=== PATIENT | female | born 1965 | race Caucasian/White ===

== ENCOUNTER 2017-05-31 13:00 | Outpatient (RCR) | payer OTHER ==
[2014-05-21 16:33] VITALS: Ht 175.3 cm; Wt 113.1 kg
[2017-05-28 09:49] LABS: PLATELET COUNT, AUTOMATED 199 K/uL (150-450)
[~2017-05-31] VITALS: Ht 175.3 cm; Wt 113.1 kg
[~2017-05-31 13:00] MED LIST: ACET500T68 PO; ALB18R INH; ALBU8.5H12 IH; AMOX-362 PO; AMOX-559 PO; ASPI81TA94 PO; Bisacodyl PR; CALC-18 PO; CHOL10005 PO; DOCU-416 PO; DOCU240C67 PO; DOXY-181 PO; ENOX100D5 SQ; FLUT16SP20 NS; FLUT1DIS27 IH; FLUT9.9S INH; GABA-549 PO; IBUP600T22 PO; Ibuprofen PO; LEVO-3 PO; LOR1 PO; LORA-629 PO; MAGN100T PO; MET60GMPT TOP; METR60GE; NOR10 PO; OLO2ODPT OD; ONDA4TAB97 PO; ONDA8TAB91 PO; OXYC-854 PO; PER PO; PREG50CA48 PO; PROC10TA4 PO; PYRI100T57 PO; WARF-1 PO
[2017-05-31 13:12] VITALS: BP 128/89
--- NOTE | 2017-06-01 19:01 | ONCOLOGY FOLLOW UP NOTE ---
EVENT DATE: May 31, 2017 DIAGNOSES 1. Stage IC ovarian serous adenocarcinoma. 2. Hypothyroidism. 3. Rosacea. 4. Asthma. CHIEF COMPLAINT The patient is here today for followup of her ovarian carcinoma. ONCOLOGY HISTORY Eda Luis is a 50-year-old woman, premenopausal at presentation, pelvic pain, thought to be uterine myoma. DIAGNOSTIC EVALUATION Pelvic ultrasound April 2014 showed posterior uterine myoma with an otherwise fairly normal uterus. PROCEDURES 1. Diagnostic laparoscopy with total abdominal hysterectomy and bilateral salpingo-oophorectomy with diagnostic cystoscopy done on May 20, 2014, and the pathology came back positive for serous adenocarcinoma, high grade, involving the left ovary. The tumor appears to involve the ovarian surface. The left fallopian tube is cystically dilated and otherwise unremarkable. There was also surface adenocarcinoma high grade involving the right ovary and right fallopian tube. No definitive involvement of the ovarian surface is recognized. There was also benign leiomyoma. 2. DaVinci robotic laparoscopic bilateral pelvic lymph node dissection, including left external iliac, left internal iliac, left obturator lymph node dissection, right external iliac, right internal iliac, right obturator lymph node dissection, multiple peritoneal biopsies, partial omentectomy with appendectomy and diagnostic laparoscopy with lysis of adhesions done by Dr. Brandon Baker on June 11, 2014. PATHOLOGY The debulking surgery was negative regarding the lymph node of the omentum and the staging procedure. STAGE Stage IC (pT1c pN0 cM0). TREATMENT The patient has been evaluated by Dr. Brandon Baker with recommendation of six cycles of carboplatin and Taxol after her surgery. The patient had started chemotherapy with carboplatin and Taxol on July 21, 2014. The patient completed six cycles of adjuvant chemotherapy with carboplatin and Taxol on November 02, 2014. HISTORY OF PRESENT ILLNESS Patient is here today for followup of her ovarian carcinoma. She is doing fine currently. She continues to have hot flashes. She has nasal discharge. She has occasional constipation. She has occasional abdominal pain with bloating sometimes. She has generalized joint pains. She continues to have tingling and numbness in the hands and feet, but they are stable currently from chemotherapy-induced neuropathy. She bruises easily. PAST MEDICAL HISTORY 1. Hypothyroidism. 2. Ovarian cancer. 3. Asthma. 4. Rosacea. 5. Headaches. PAST SURGICAL HISTORY 1. Total abdominal hysterectomy. 2. Bilateral salpingo-oophorectomy May 20, 2014. 3. Debulking surgery for ovarian cancer done on June 11, 2014. 4. TMJ surgery. 5. Surgery for fractured left ankle. 6. [place] tooth extraction. 7. Laparoscopic cholecystectomy done on March 02, 2016. SOCIAL HISTORY The patient is single. She does not have children. 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 Denies any abuse of tobacco, alcohol or drugs. FAMILY HISTORY Father had prostate cancer at the age of 72. There is no family history of ovarian or breast cancer in the family. CURRENT MEDICATIONS 1. Levothyroxine 100 mcg daily. 2. Doxycycline 100 mg daily. 3. Metronidazole 1% topical daily. 4. Fluticasone propionate 50 mcg daily. 5. Albuterol inhaler 90 mcg as needed. 6. Ibuprofen 600 mg as needed. 7. Zofran 4 mg p.r.n. for nausea and vomiting. 8. Percocet 5/325 mg p.r.n. for pain. ALLERGIES ZITHROMAX which causes flare-up of rosacea and MUCINEX D, which causes numbness of her face. REVIEW OF SYSTEMS CONSTITUTIONAL: The patient has hot flashes. HEENT: Ears: No tinnitus or hearing problem. Nose: She has nasal discharge. Throat: No sore throat or mouth ulcers. Eyes: No diplopia or visual changes. RESPIRATORY: No shortness of breath. No cough, expectoration or hemoptysis. CARDIOVASCULAR: No chest pain, orthopnea, or paroxysmal nocturnal dyspnea (PND) . No edema. No palpitations. GASTROINTESTINAL: She has constipation. She has abdominal pain occasionally with bloating. GENITOURINARY: No hematuria or dysuria. MUSCULOSKELETAL: She has generalized joint pain. NEUROLOGICAL: She has tingling and numbness in the hands and feet, which is stable. HEMATOLOGIC/LYMPHATIC: She bruises easily. SKIN: No skin rash or lumps. PSYCHIATRIC: No anxiety or depression. PHYSICAL EXAMINATION GENERAL: Looks stable. Well-developed, well-nourished, and in no acute distress. VITAL SIGNS: Blood pressure 128/89, pulse 79 per minute, respirations 16 per minute, temperature 97, pulse ox 95% on room air. HEENT: Head: Atraumatic. No sinus tenderness to palpation. Eyes: No icterus or conjunctivitis. Mouth and throat: No oral thrush or mucositis. NECK: Supple. No cervical or supraclavicular lymphadenopathy. LUNGS: Clear to auscultation and percussion bilaterally. HEART: Regular rate and rhythm. No gallops, murmurs, clicks or rubs. ABDOMEN: Soft and lax. Scar from recent abdominal surgeries are noted and healed well. EXTREMITIES: No cyanosis, clubbing or edema. LYMPHATICS: No peripheral lymphadenopathy. NEUROLOGICAL: Conscious, alert and oriented times three. No focal motor or sensory deficits. PSYCHIATRIC: Mood and affect appear normal. SKIN: No skin rash, bruise or purpuric eruption. DIAGNOSTIC DATA CBC showed white count 5.1, hemoglobin 16.1, hematocrit 47, platelets 199,000. Chem panel totally normal except carbon dioxide 21. CA-125 is normal at 15. ASSESSMENT 1. Stage Ic (PN0 CM0 ovarian adenocarcinoma involving both ovaries. Left ovarian cancer is present on the surface of the ovary while there is no surface involvement on the right ovarian cancer. The patient had total abdominal hysterectomy and bilateral salpingo-oophorectomy with incidental finding of ovarian cancer done on May 20, 2014, and debulking surgery by Dr. Brandon Baker was done in [place] June 16, 2014. CA-125 prior to treatment was 25. The patient received six courses of adjuvant chemotherapy with carboplatin and Taxol between July 21, 2014 through November 06, 2014. Current CA-125 is normal at 15 and is also stable. Patient currently in complete remission. I am planning to continue followup. As the patient is three years since her diagnosis, I am planning to see her in four months with CBC, chem panel and CA- 125. 2. 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 Patient currently on Lyrica 150 mg twice daily, with stabilization of her neuropathy. We will continue to monitor. 3. Osteoarthritis. PLAN 1. Continue followup. 2. Patient to return in four months with CBC, chem panel, CA-125. 3. Patient to contact us for any new concern or complaints. MTDD
== END 2017-06-29 16:22 | disposition home or self-care (01) ==
LOC: ONC 13:00
PROVIDERS: ATTEND Internal Medicine Hematology
DX: C56.2 Malignant neoplasm of left ovary (principal); G62.0 Drug-induced polyneuropathy; T45.1X5A Adverse effect of antineoplastic and immunosuppressive drugs, initial encounter; M19.90 Unspecified osteoarthritis, unspecified site; Z79.899 Other long term (current) drug therapy; E03.9 Hypothyroidism, unspecified; L71.9 Rosacea, unspecified
CPT/HCPCS: 36415; 82040; 82247; 82310; 82374; 82435; 82565; 82947; 84075; 84132; 84155; 84295; 84450; 84460; 84520; 85025; 86304; 99212

== ENCOUNTER 2017-10-04 13:25 | Outpatient (RCR) | payer OTHER ==
[2014-05-21 16:33] VITALS: Wt 111.8 kg
[2017-10-01 08:14] VITALS: BP 125/87
[2017-10-01 08:34] LABS: PLATELET COUNT, AUTOMATED 211 K/uL (150-450)
[~2017-10-04 13:25] MED LIST changes: +CETI10CA8 PO; +MONT10TA PO
[2017-10-04 13:32] VITALS: BP 112/79
[2017-10-04] MEDS ORDERED: PREG100C44 PO (13:38)
--- NOTE | 2017-10-04 18:53 | ONCOLOGY FOLLOW UP NOTE ---
EVENT DATE: October 04, 2017 DIAGNOSES 1. Stage IC ovarian serous adenocarcinoma. 2. Hypothyroidism. 3. Rosacea. 4. Asthma. CHIEF COMPLAINT The patient is here today for followup of her ovarian carcinoma. ONCOLOGY HISTORY Eda Luis is a 52-year-old woman, premenopausal at presentation, pelvic pain, thought to be uterine myoma. DIAGNOSTIC EVALUATION Pelvic ultrasound April 2014 showed posterior uterine myoma with an otherwise fairly normal uterus. PROCEDURES 1. Diagnostic laparoscopy with total abdominal hysterectomy and bilateral salpingo-oophorectomy with diagnostic cystoscopy done on May 20, 2014, and the pathology came back positive for serous adenocarcinoma, high grade, involving the left ovary. The tumor appears to involve the ovarian surface. The left fallopian tube is cystically dilated and otherwise unremarkable. There was also surface adenocarcinoma high grade involving the right ovary and right fallopian tube. No definitive involvement of the ovarian surface is recognized. There was also benign leiomyoma. 2. DaVinci robotic laparoscopic bilateral pelvic lymph node dissection, including left external iliac, left internal iliac, left obturator lymph node dissection, right external iliac, right internal iliac, right obturator lymph node dissection, multiple peritoneal biopsies, partial omentectomy with appendectomy and diagnostic laparoscopy with lysis of adhesions done by Dr. Brandon Baker on June 11, 2014. PATHOLOGY The debulking surgery was negative regarding the lymph node of the omentum and the staging procedure. STAGE Stage IC (pT1c pN0 cM0). TREATMENT The patient has been evaluated by Dr. Brandon Baker with recommendation of six cycles of carboplatin and Taxol after her surgery. The patient had started chemotherapy with carboplatin and Taxol on July 21, 2014. The patient completed six cycles of adjuvant chemotherapy with carboplatin and Taxol on November 02, 2014. HISTORY OF PRESENT ILLNESS Patient is here today for followup of her ovarian carcinoma. She is doing fine currently. She is complaining of occasional nausea. She has pain in her legs. Her neuropathy from her previous chemotherapy is stable involving both hands and feet. She has occasional headache. She bruises easily. PAST MEDICAL HISTORY 1. Hypothyroidism. 2. Ovarian cancer. 3. Asthma. 4. Rosacea. 5. Headaches. PAST SURGICAL HISTORY 1. Total abdominal hysterectomy. 2. Bilateral salpingo-oophorectomy May 20, 2014. 3. Debulking surgery for ovarian cancer done on June 11, 2014. 4. TMJ surgery. 5. Surgery for fractured left ankle. 6. [place] tooth extraction. 7. Laparoscopic cholecystectomy done on March 02, 2016. SOCIAL HISTORY The patient is single. She does not have children. 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 Denies any abuse of tobacco, alcohol or drugs. FAMILY HISTORY Father had prostate cancer at the age of 72. There is no family history of ovarian or breast cancer in the family. CURRENT MEDICATIONS 1. Levothyroxine 100 mcg daily. 2. Doxycycline 100 mg daily. 3. Metronidazole 1% topical daily. 4. Fluticasone propionate 50 mcg daily. 5. Albuterol inhaler 90 mcg as needed. 6. Ibuprofen 600 mg as needed. 7. Zofran 4 mg p.r.n. for nausea and vomiting. 8. Percocet 5/325 mg p.r.n. for pain. ALLERGIES ZITHROMAX which causes flare-up of rosacea and MUCINEX D, which causes numbness of her face. REVIEW OF SYSTEMS CONSTITUTIONAL: No fever, chills or sweating. No recent infection. HEENT: Ears: No tinnitus or hearing problem. Nose: She has nasal discharge. Throat: No sore throat or mouth ulcers. Eyes: No diplopia or visual changes. RESPIRATORY: No shortness of breath. No cough, expectoration or hemoptysis. CARDIOVASCULAR: No chest pain, orthopnea, or paroxysmal nocturnal dyspnea (PND) . No edema. No palpitations. GASTROINTESTINAL: She has nausea. GENITOURINARY: No hematuria or dysuria. MUSCULOSKELETAL: She has pain in the legs. NEUROLOGICAL: She has tingling and numbness in the hands and feet. She has also occasional headache. HEMATOLOGIC/LYMPHATIC: She bruises easily. SKIN: No skin rash or lumps. PSYCHIATRIC: No anxiety or depression. PHYSICAL EXAMINATION GENERAL: Looks stable. Well-developed, well-nourished, and in no acute distress. VITAL SIGNS: Blood pressure 112/79, pulse 75 per minute, respirations 16 per minute, temperature 97, pulse ox 90% on room air. HEENT: Head: Atraumatic. No sinus tenderness to palpation. Eyes: No icterus or conjunctivitis. Mouth and throat: No oral thrush or mucositis. NECK: Supple. No cervical or supraclavicular lymphadenopathy. LUNGS: Clear to auscultation and percussion bilaterally. HEART: Regular rate and rhythm. No gallops, murmurs, clicks or rubs. ABDOMEN: Soft and lax. Scar from recent abdominal surgeries are noted and healed well. EXTREMITIES: No cyanosis, clubbing or edema. LYMPHATICS: No peripheral lymphadenopathy. NEUROLOGICAL: Conscious, alert and oriented times three. No focal motor or sensory deficits. PSYCHIATRIC: Mood and affect appear normal. SKIN: No skin rash, bruise or purpuric eruption. DIAGNOSTIC DATA CBC showed white count 4.9, hemoglobin 14.7, hematocrit 43.1, platelets 211, 000. Chem panel totally normal except blood sugar 113. CA-125 is normal at 13. ASSESSMENT 1. Stage Ic (pT1c pN0 CM0) ovarian adenocarcinoma involving both ovaries. Left ovarian cancer is present on the surface of the ovary, while there is no surface involvement on the right ovarian cancer. The patient had total abdominal hysterectomy and bilateral salpingo-oophorectomy with incidental finding of ovarian cancer and the procedure was done on May 20, 2014, and debulking surgery done by Dr. Brandon Baker was done in [place] June 16, 2014. CA- 125 prior to treatment was 25. The patient received six courses of adjuvant chemotherapy with carboplatin and Taxol between July 21, 2014 through November 06, 2014. Her current CA-125 is normal at 13 which is stable. She is currently in remission. I am planning to continue followup. I will see her again in four months with CBC, chem panel and CA-125. 2. 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 She is currently on Lyrica and her neuropathy is stable. We will continue to monitor. 3. Osteoarthritis. PLAN 1. Continue followup. 2. Patient to return in four months with CBC, chem panel, CA-125. 3. Patient to contact us for any new concern or complaints. MTDD
[2017-12-14] MEDS ORDERED: FLU60VIA41 IM (14:21)
== END 2017-12-27 ==
LOC: ONC 13:25
PROVIDERS: ATTEND Internal Medicine Hematology
DX: C56.2 Malignant neoplasm of left ovary (principal); G62.9 Polyneuropathy, unspecified; E03.9 Hypothyroidism, unspecified; J45.909 Unspecified asthma, uncomplicated; L71.9 Rosacea, unspecified; R51 Headache; Z90.710 Acquired absence of both cervix and uterus; Z90.49 Acquired absence of other specified parts of digestive tract; Z92.21 Personal history of antineoplastic chemotherapy
CPT/HCPCS: 36415; 82040; 82247; 82310; 82374; 82435; 82565; 82947; 84075; 84132; 84155; 84295; 84450; 84460; 84520; 85025; 86304; 99212

== ENCOUNTER 2018-01-25 13:00 | Outpatient (RCR) | payer OTHER ==
[2014-05-21 16:33] VITALS: Wt 110.4 kg
[2018-01-22 08:13] VITALS: BP 130/77
[2018-01-22 08:32] LABS: PLATELET COUNT, AUTOMATED 184 K/uL (150-450)
[~2018-01-25 13:00] MED LIST changes: +FLU60VIA41 IM; +PREG100C44 PO
[2018-01-25 13:14] VITALS: BP 118/90
--- NOTE | 2018-01-26 18:26 | ONCOLOGY FOLLOW UP NOTE ---
EVENT DATE: January 25, 2018 DIAGNOSES 1. Stage IC ovarian serous adenocarcinoma. 2. Hypothyroidism. 3. Rosacea. 4. Asthma. CHIEF COMPLAINT Patient is here today for followup of her ovarian carcinoma. ONCOLOGY HISTORY Eda Luis is a 52-year-old woman, premenopausal at presentation, pelvic pain, thought to be uterine myoma. DIAGNOSTIC EVALUATION Pelvic ultrasound April 2014 showed posterior uterine myoma with an otherwise fairly normal uterus. PROCEDURES 1. Diagnostic laparoscopy with total abdominal hysterectomy and bilateral salpingo-oophorectomy with diagnostic cystoscopy done on May 20, 2014, and the pathology came back positive for serous adenocarcinoma, high grade, involving the left ovary. The tumor appears to involve the ovarian surface. The left fallopian tube is cystically dilated and otherwise unremarkable. There was also surface adenocarcinoma high grade involving the right ovary and right fallopian tube. No definitive involvement of the ovarian surface is recognized. There was also benign leiomyoma. 2. [place] robotic laparoscopic bilateral pelvic lymph node dissection including left external iliac, left internal iliac, left obturator lymph node dissection, right external iliac, right internal iliac, right obturator lymph node dissection, multiple peritoneal biopsies, partial omentectomy with appendectomy, and diagnostic laparoscopy with lysis of adhesions done by Dr. Brandon Baker on June 11, 2014. PATHOLOGY The debulking surgery was negative regarding the lymph nodes of the omentum and the staging procedure. STAGE Stage IC (pT1c pN0 cM0). TREATMENT The patient has been evaluated by Dr. Brandon Baker with recommendation of six cycles of carboplatin and Taxol after her surgery. The patient had started chemotherapy with carboplatin and Taxol on July 21, 2014. The patient completed six cycles of adjuvant chemotherapy with carboplatin and Taxol on November 02, 2014. HISTORY OF PRESENT ILLNESS Patient is here today for followup of her ovarian carcinoma. She is doing fine currently. She is complaining of pain especially in the legs. She continues to have neuropathy, getting worse in her feet, and the patient is currently on high-dose Lyrica. She bruises easily. PAST MEDICAL HISTORY 1. Hypothyroidism. 2. Ovarian cancer. 3. Asthma. 4. Rosacea. 5. Headaches. PAST SURGICAL HISTORY 1. Total abdominal hysterectomy with bilateral salpingo-oophorectomy May 20, 2014. 2. Debulking surgery for ovarian cancer done on June 11, 2014. 3. TMJ surgery. 4. Surgery for fractured left ankle. 5. [place] tooth extraction. 6. Laparoscopic cholecystectomy done on March 02, 2016. SOCIAL HISTORY The patient is single. She does not have children. 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 Denies any abuse of tobacco, alcohol, or drugs. FAMILY HISTORY Father had prostate cancer at the age of 72. There is no family history of ovarian or breast cancer in the family. CURRENT MEDICATIONS 1. Levothyroxine 100 mcg daily. 2. Doxycycline 100 mg daily. 3. Metronidazole 1% topical daily. 4. Fluticasone propionate 50 mcg daily. 5. Albuterol inhaler 90 mcg as needed. 6. Ibuprofen 600 mg as needed. 7. Zofran 4 mg p.r.n. for nausea and vomiting. 8. Percocet 5/325 mg p.r.n. for pain. ALLERGIES ZITHROMAX which causes flare up of rosacea and MUCINEX D which causes numbness of her face. REVIEW OF SYSTEMS CONSTITUTIONAL: No appetite or weight change. No fever, chills, or sweating. No recent infection. HEENT: Ears: No tinnitus or hearing problem. Nose: No nasal discharge or epistaxis. Throat: No sore throat or mouth ulcers. Eyes: No diplopia or visual changes. RESPIRATORY: No shortness of breath. No cough, expectoration, or hemoptysis. CARDIOVASCULAR: No chest pain, orthopnea, or paroxysmal nocturnal dyspnea (PND). No edema. No palpitations. GASTROINTESTINAL: No nausea or vomiting. No diarrhea or constipation. No change in bowel movements. No heartburn or swallowing difficulties. No abdominal pain. No jaundice. No hematemesis, melena, or rectal bleeding. GENITOURINARY: No hematuria or dysuria. MUSCULOSKELETAL: She has pain in the legs. NEUROLOGIC: She has neuropathy especially in her feet, on Lyrica currently. No headaches or convulsions. HEMATOLOGIC/LYMPHATIC: No bleeding. She bruises easily. No weakness or fatigue. No enlarged lymph nodes. SKIN: No skin rash or lumps. PSYCHIATRIC: No anxiety or depression. PHYSICAL EXAMINATION GENERAL: Looks stable. Well developed, well nourished, and in no acute distress. VITAL SIGNS: Blood pressure 118/90, pulse 63 per minute, respirations 16 per minute, temperature 96.6, pulse ox 94% on room air. HEENT: Head: Atraumatic. No sinus tenderness to palpation. Eyes: No icterus or conjunctivitis. Mouth and Throat: No oral thrush or mucositis. NECK: Supple. No cervical or supraclavicular lymphadenopathy. LUNGS: Clear to auscultation and percussion bilaterally. HEART: Regular rate and rhythm. No gallops, murmurs, clicks, or rubs. ABDOMEN: Soft and lax. No tenderness. No hepatosplenomegaly. No masses. EXTREMITIES: No cyanosis, clubbing, or edema. LYMPHATICS: No peripheral lymphadenopathy. NEUROLOGICAL: Conscious, alert, and oriented times three. No focal motor or sensory deficits. PSYCHIATRIC: Mood and affect appear normal. SKIN: No skin rash, bruise, or purpuric eruption. DIAGNOSTIC DATA CBC showed white count 4.4, hemoglobin 14.4, hematocrit 43.6, platelets 184,000. Chem panel is totally normal. CA-125 is normal at 13. ASSESSMENT 1. Stage IC (pT1c pN0 cM0) ovarian adenocarcinoma involving both ovaries. Left ovarian cancer is present on the surface of the ovary, while there is no surface involvement on the right ovarian cancer. The patient had total abdominal hysterectomy and bilateral salpingo-oophorectomy with incidental finding of ovarian cancer. She had her hysterectomy on the May, and debulking surgery done by Dr. Brandon Baker was done in [place] June 16, 2014. CA- 125 prior to treatment was 25. Patient received six courses of adjuvant chemotherapy with carboplatin and Taxol between July 21, 2014, through November 06, 2014. Her current CEA is normal at 13, which is also stable. She is currently in remission. I am planning to continue followup. I will see her again in four months with CBC, chemistry panel, and CA-125. 2. 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 She is currently on high-dose Lyrica. 3. Osteoarthritis. PLAN 1. Continue followup. 2. Patient to return in four months with CBC, chem panel, CA-125. 3. Patient to contact us for any new concern or complaints. MTDD
== END 2018-02-11 08:58 | disposition home or self-care (01) ==
LOC: ONC 13:00
PROVIDERS: ATTEND Internal Medicine Hematology
DX: C56.2 Malignant neoplasm of left ovary (principal); E03.9 Hypothyroidism, unspecified; J45.909 Unspecified asthma, uncomplicated; G62.0 Drug-induced polyneuropathy; T45.1X5S Adverse effect of antineoplastic and immunosuppressive drugs, sequela
CPT/HCPCS: 36415; 82040; 82247; 82310; 82374; 82435; 82565; 82947; 84075; 84132; 84155; 84295; 84450; 84460; 84520; 85025; 86304; 99212

== ENCOUNTER → 2018-02-25 | Outpatient (CLI) | payer OTHER ==
[2014-05-21 16:33] VITALS: BMI 35.4
--- NOTE | 2018-02-26 12:16 | RADIOLOGY IMAGING REPORT ---
FACILITY: [facility] PATIENT NAME: KEVON LUCERO : [id number] MR: [id number] V: [id number] EXAM DATE: [id number] ORDERING PHYSICIAN: SASHA CAMARGO TECHNOLOGIST: Abigail Moncada PROCEDURE:BILATERAL DIGITAL SCREENING MAMMOGRAM WITH CAD ASSISTED INTERPRETATION & 3D TOMOSYNTHESIS COMPARISON:Prior mammograms 03/02/17, 02/02/16, 02/05/15, 01/26/15, 12/26/13. INDICATIONS:SCREENING FINDINGS: The breasts are heterogeneously dense which may obscure small masses. The parenchymal pattern has remained stable allowing for difference in mammographic technique & patient positioning. There is a biopsy clip in the 12 o'clock position of the Right breast. There is a small well circumscribed nodular density in the posterior 1/3 of the Left breast just above midline on the Left MLO view that appears stable. DIAGNOSTIC CATEGORY 2--BENIGN FINDING. RECOMMENDATIONS: ROUTINE MAMMOGRAM AND CLINICAL EVALUATION. IMPRESSION: BIRADS 2: Benign finding. No significant abnormality is seen. Dictated by: Yue Dunaway M.D. on 02/25/2018 at 17:53 Transcribed by: ADAL on 02/26/2018 at 8:50 Approved by: Yue Dunaway M.D. on 02/26/2018 at 12:15 [facility]
== END ==
LOC: MAMO 02:27
PROVIDERS: ATTEND Obstetrics & Gynecology
DX: Z12.31 Encounter for screening mammogram for malignant neoplasm of breast (principal)
CPT/HCPCS: 77063; 77067

== ENCOUNTER 2018-06-14 10:50 | Emergency (ER) | payer OTHER ==
[2014-05-21 16:33] VITALS: Wt 102.1 kg
[~2018-06-14 10:50] MED LIST changes: +BENZ200C15 PO; +[UNRECOGNIZED DRUG - CODE] PO
--- NOTE | 2018-06-14 11:07 | ER Report ---
History and Physical Time Seen By MD: 11:07 Hx. of Stated Complaint: ABDOMINAL PAIN FOR 2 WEEKS THAT STATES ABOVE THE UMBILICUS AND RADIATES TO LOWER PELVIS. PAIN IS WORSE AFTER SHE EATS. SHE HAS BEEN ON PRILOSEC FOR A FEW DAYS WITHOUT RELEIF. SAW DR. PAPPAS ON SUNDAY FOR CONSTIPATION. STARTED MIRALAX AND STOOL AND SOFTNERS. HAD A SMALL BM THIS MORNING HPI/ROS CHIEF COMPLAINT: Abdominal pain HISTORY OF PRESENT ILLNESS: 52-year-old female patient presents to emergency room with complaint of abdominal pain. Patient states this been going on for the past few weeks. She states the pain seems to her in the upper abdomen and then migrates to the pelvis. Patient states she's not had any diarrhea. Patient states that she has been dealing with some constipation. She is currently taking a stool softener and MiraLAX. Patient states that she has had some nausea and one episode of vomiting. She states she is not taking any other medications besides the stool softener and MiraLAX. She states she started on that earlier this week. Patient is concerned because she does have pain after eating. She states that seems to be the worst time. She states she has had a decreased appetite. REVIEW OF SYSTEMS: Respiratory: No cough, no dyspnea. Cardiovascular: No chest pain, no palpitations. Gastrointestinal: As noted above Musculoskeletal: No back pain. Allergies: Coded Allergies: guaifenesin (Verified Allergy, Intermediate, face went numb, 06/14/18) azithromycin (Verified Adverse Reaction, Intermediate, rosacea flares up really bad, 06/14/18) Uncoded Allergies: band aids (Adverse Reaction, Intermediate, RASH, 05/13/14) Home Meds Active Scripts Amoxicillin/Pot Clav 875-125 Mg Tab (AUGMENTIN 875-125 TABLET) 1 Each Tablet, 1 TAB PO Q12H for 7 Days, #14 TAB 0 Refills Prov:BONITA MORRIS DNP, JEWEL WAXER-BC 02/25/18 Montelukast Sodium (SINGULAIR) 10 Mg Tablet, 1 TAB PO QHS for 30 Days, #30 TAB 6 Refills Prov:SETH LOVE JR, MD 08/29/17 Pyridoxine Hcl (VITAMIN B-6) 100 Mg Tablet, 100 MG PO BID, #60 TAB Prov:MATY WYATT JEWEL WAXER-BC, ONC 07/21/14 Reported Medications Pregabalin (LYRICA) 100 Mg Capsule, 150 MG PO BID, CAPSULE 10/04/17 Cetirizine Hcl (ZYRTEC) 10 Mg Capsule, 10 MG PO QDAY, CAPSULE 08/14/17 Magnesium Amino Acid Chelate (MAGNESIUM) Unknown Strength Tablet, 100 MG PO QDAY 02/25/16 Calcium Carbonate (CALCIUM) 500 Mg Tab.chew, 500 MG PO, TAB.CHEW 02/25/16 Cholecalciferol (Vitamin D3) (VITAMIN D3) 1,000 Unit Tablet, 800 UNIT PO, TAB 02/25/16 Aspirin (ASPIRIN) 81 Mg Tab.chew, 81 MG PO QDAY, TAB.CHEW 02/17/15 Acetaminophen (TYLENOL EXTRA STRENGTH) 500 Mg Tablet, 500 MG PO PRN 12/11/14 Albuterol Sul Hfa 90 Mcg 8 Gm (VENTOLIN HFA 90 MCG 8 GM) 8.5 Gm Hfa.aer.ad, 1-2 PUFF IH 3-4XD 07/10/14 Olopatadine (PATADAY) 0.05 Ml Soln, 2.5 ML OD 07/10/14 Fluticasone Propionate (Flonase Allergy Relief) 9.9 Ml [place].susp, 50 MCG INH 07/10/14 Metronidazole (METRONIDAZOLE) 60 Gm Gel..gram., 60 GM .ROUTE DAILY 07/10/14 Levothyroxine Sodium (LEVOTHYROXINE SODIUM) 100 Mcg Tablet, 125 MCG PO QDAY 05/13/14 Doxycycline Hyclate (DOXYCYCLINE HYCLATE) 100 Mg Capsule, 100 MG PO QDAY, CAPSULE 05/13/14 Discontinued Scripts Codeine Sulfate (CODEINE SULFATE) 15 Mg Tablet, 1-2 TAB PO Q6H PRN for COUGH, #10 TAB 0 Refills Prov:BONITA MORRIS DNP, JEWEL WAXER-BC 05/15/18 Benzonatate (BENZONATATE) 200 Mg Capsule, 1 CAP PO TID PRN for COUGH, #20 CAP 0 Refills Prov:BONITA MORRIS DNP, JEWEL WAXER-BC 05/13/18 Past Medical/Surgical History Patient has a past medical history of hypertension, hyperlipidemia, asthma, pneumonia, constipation, reflux, left ankle fracture, hypothyroidism, rosacea, ovarian cancer, chemotherapy. Patient has surgical history of abdominal surgery, laparoscopy, rule out surgery 2 stage ovarian cancer, cholecystectomy, hysterectomy, repair of the left ankle fracture, TMJ, Mediport removed in 2014. Reviewed Nurses Notes: Yes Hx Smoking: No Smoking Status: Never Smoker Exposure to Second Hand Smoke?: No Hx Alcohol Use: No Constitutional Vital Sign - Last 24 Hours 06/14/18 06/14/18 06/14/18 06/14/18 10:55 11:00 11:15 11:30 Temp 97.8 Pulse 92 68 Resp 18 B/P (MAP) 148/112 148/112 (124) 127/97 (107) 130/88 (102) Pulse Ox 93 90 O2 Delivery Room Air 06/14/18 06/14/18 06/14/18 06/14/18 11:45 12:00 12:15 12:30 Pulse 69 58 B/P (MAP) 128/107 (114) 137/92 (107) 143/85 (104) 149/103 (118) Pulse Ox 92 98 06/14/18 12:30 O2 Flow Rate 2.0 Physical Exam General Appearance: The patient is alert, has no immediate need for airway pro tection and no current signs of toxicity. Respiratory: Chest is non tender, lungs are clear to auscultation. Cardiac: regular rate and rhythm Gastrointestinal: Abdomen is soft and generalized tenderness, no masses, bowel sounds normal. Musculoskeletal: Neck: Neck is supple and non tender. Extremities have full range of motion and are non tender. Skin: No rashes or lesions. DIFFERENTIAL DIAGNOSIS: After history and physical exam differential diagnosis was considered for abdominal pain including but not limited to appendicitis, cholecystitis, gastritis and urinary tract infection. Medical Decision Making Data Points Result Diagram: 06/14/18 1125 06/14/18 1125 Laboratory Hematology Test 06/14/18 10:56 06/14/18 11:25 Urine Color Yellow Urine Clarity Slightly-cloudy Urine pH 6.0 pH (4.8-9.5) Urine Specific [place] 1.014 Urine Protein 30 mg/dL (NEGATIVE) Urine Glucose (UA) Negative mg/dL (NEGATIVE) Urine Ketones Negative mg/dL (NEGATIVE) Urine Blood Negative (NEGATIVE) Urine Nitrite Negative (NEGATIVE) Urine Bilirubin Negative (NEGATIVE) Urine Urobilinogen 2.0 mg/dL (0.2-1.9) Urine Leukocyte Esterase Moderate (NEGATIVE) Urine RBC <1 /HPF (0-2/HPF) Urine WBC 5 /HPF (0-5/HPF) Urine Squamous Epithelial Cells Many /LPF (</=FEW) Urine Transitional Epithelial Cells Many /LPF (NONE-FEW) Urine Amorphous Crystals Few /HPF Urine Bacteria Negative /HPF (NONE-FEW) Urine Mucus None /HPF (NONE-FEW) Red Blood Count 5.50 M/uL (4.17-5.56) Mean Corpuscular Volume 80.7 fL (80.0-96.0) Mean Corpuscular Hemoglobin 26.1 pg (26.0-33.0) Mean Corpuscular Hemoglobin Concent 32.3 g/dL (32.0-36.0) Red Cell Distribution Width 13.6 % (11.5-14.5) Mean Platelet Volume 8.7 fL (7.2-11.1) Neutrophils (%) (Auto) 59.1 % (39.4-72.5) Lymphocytes (%) (Auto) 29.8 % (17.6-49.6) Monocytes (%) (Auto) 8.2 % (4.1-12.4) Eosinophils (%) (Auto) 1.9 % (0.4-6.7) Basophils (%) (Auto) 1.0 % (0.3-1.4) Nucleated RBC Relative Count (auto) 0.1 /100WBC Neutrophils # (Auto) 2.6 K/uL (2.0-7.4) Lymphocytes # (Auto) 1.3 K/uL (1.3-3.6) Monocytes # (Auto) 0.4 K/uL (0.3-1.0) Eosinophils # (Auto) 0.1 K/uL (0.0-0.5) Basophils # (Auto) 0.0 K/uL (0.0-0.1) Nucleated RBC Absolute Count (auto) 0.00 K/uL Sodium Level 137 mmol/L (137-145) Potassium Level 3.9 mmol/L (3.5-5.0) Chloride Level 103 mmol/L (98-107) Carbon Dioxide Level 25 mmol/L (22-31) Blood Urea Nitrogen 14 mg/dl (7-18) Creatinine 0.80 mg/dl (0.52-1.04) Glomerular Filtration Rate Calc > 60.0 Random Glucose 104 mg/dl (75-110) Calcium Level 9.2 mg/dl (8.4-10.2) Total Bilirubin 0.4 mg/dl (0.2-1.3) Aspartate Amino Transf (AST/SGOT) 21 U/L (0-35) Alanine Aminotransferase (ALT/SGPT) 42 U/L (0-56) Alkaline Phosphatase 84 U/L (0-126) C-Reactive Protein 0.7 mg/dl (<1.0) Total Protein 7.2 g/dl (6.3-8.2) Albumin 4.2 g/dl (3.5-5.0) Amylase Level 86 U/L (0-110) Lipase 440 U/L (23-300) Chemistry Test 06/14/18 10:56 06/14/18 11:25 Urine Color Yellow Urine Clarity Slightly-cloudy Urine pH 6.0 pH (4.8-9.5) Urine Specific [place] 1.014 Urine Protein 30 mg/dL (NEGATIVE) Urine Glucose (UA) Negative mg/dL (NEGATIVE) Urine Ketones Negative mg/dL (NEGATIVE) Urine Blood Negative (NEGATIVE) Urine Nitrite Negative (NEGATIVE) Urine Bilirubin Negative (NEGATIVE) Urine Urobilinogen 2.0 mg/dL (0.2-1.9) Urine Leukocyte Esterase Moderate (NEGATIVE) Urine RBC <1 /HPF (0-2/HPF) Urine WBC 5 /HPF (0-5/HPF) Urine Squamous Epithelial Cells Many /LPF (</=FEW) Urine Transitional Epithelial Cells Many /LPF (NONE-FEW) Urine Amorphous Crystals Few /HPF Urine Bacteria Negative /HPF (NONE-FEW) Urine Mucus None /HPF (NONE-FEW) White Blood Count 4.4 k/uL (4.5-11.0) Red Blood Count 5.50 M/uL (4.17-5.56) Hemoglobin 14.4 g/dL (12.0-16.0) Hematocrit 44.4 % (34.0-47.0) Mean Corpuscular Volume 80.7 fL (80.0-96.0) Mean Corpuscular Hemoglobin 26.1 pg (26.0-33.0) Mean Corpuscular Hemoglobin Concent 32.3 g/dL (32.0-36.0) Red Cell Distribution Width 13.6 % (11.5-14.5) Platelet Count 191 K/uL (150-450) Mean Platelet Volume 8.7 fL (7.2-11.1) Neutrophils (%) (Auto) 59.1 % (39.4-72.5) Lymphocytes (%) (Auto) 29.8 % (17.6-49.6) Monocytes (%) (Auto) 8.2 % (4.1-12.4) Eosinophils (%) (Auto) 1.9 % (0.4-6.7) Basophils (%) (Auto) 1.0 % (0.3-1.4) Nucleated RBC Relative Count (auto) 0.1 /100WBC Neutrophils # (Auto) 2.6 K/uL (2.0-7.4) Lymphocytes # (Auto) 1.3 K/uL (1.3-3.6) Monocytes # (Auto) 0.4 K/uL (0.3-1.0) Eosinophils # (Auto) 0.1 K/uL (0.0-0.5) Basophils # (Auto) 0.0 K/uL (0.0-0.1) Nucleated RBC Absolute Count (auto) 0.00 K/uL Glomerular Filtration Rate Calc > 60.0 Calcium Level 9.2 mg/dl (8.4-10.2) Total Bilirubin 0.4 mg/dl (0.2-1.3) Aspartate Amino Transf (AST/SGOT) 21 U/L (0-35) Alanine Aminotransferase (ALT/SGPT) 42 U/L (0-56) Alkaline Phosphatase 84 U/L (0-126) C-Reactive Protein 0.7 mg/dl (<1.0) Total Protein 7.2 g/dl (6.3-8.2) Albumin 4.2 g/dl (3.5-5.0) Amylase Level 86 U/L (0-110) Lipase 440 U/L (23-300) Urinalysis Test 06/14/18 10:56 Urine Color Yellow Urine Clarity Slightly-cloudy Urine pH 6.0 pH (4.8-9.5) Urine Specific [place] 1.014 Urine Protein 30 mg/dL (NEGATIVE) Urine Glucose (UA) Negative mg/dL (NEGATIVE) Urine Ketones Negative mg/dL (NEGATIVE) Urine Blood Negative (NEGATIVE) Urine Nitrite Negative (NEGATIVE) Urine Bilirubin Negative (NEGATIVE) Urine Urobilinogen 2.0 mg/dL (0.2-1.9) Urine Leukocyte Esterase Moderate (NEGATIVE) Urine RBC <1 /HPF (0-2/HPF) Urine WBC 5 /HPF (0-5/HPF) Urine Squamous Epithelial Cells Many /LPF (</=FEW) Urine Transitional Epithelial Cells Many /LPF (NONE-FEW) Urine Amorphous Crystals Few /HPF Urine Bacteria Negative /HPF (NONE-FEW) Urine Mucus None /HPF (NONE-FEW) EKG/Imaging Imaging ADDENDUM #1 ADDENDUM: There is a possible isodense mass at the junction of the body and tail the pancreas measuring 1.3 cm in diameter. Given the abrupt dilatation of the pancreatic duct in the tail the pancreas MRCP should also be performed to evaluate for potential pancreatic mass in this location. Results were called to NISSA PEREA at 06/14/2018 1:50 PM. Report Dictated By: Yue Dunaway MD at 06/14/2018 1:55 PM Report E-Signed By: Yue Dunaway MD at 06/14/2018 1:[address] ABDOMEN PELVIS W/ CON HISTORY: abdominal pain x3 days, elevated lipase TECHNIQUE: Following administration of IV contrast contiguous axial images acquired through the abdomen/pelvis. Coronal and sagittal reformatting also performed.Dose Lowering Technique One of the following dose optimization techniques was utilized in the performance of this exam: Automated exposure control; adjustment of the mA and/or kV according to the patient's size; or use of an iterative reconstruction technique. Specific details can be referenced in the facility's radiology CT exam operational policy. CONTRAST: 75 mL Isovue-370 COMPARISON: CT abdomen pelvis February 02, 2016 and MR the abdomen summary six 2015 FINDINGS: Visualized lung bases: There are dependent changes seen in the lower lung graves Hepatobiliary: There postsurgical changes from a cholecystectomy Spleen: Negative. Adrenals: Right adrenal gland appears unremarkable. A normal-appearing left adrenal gland is not seen. In the expected location of the left adrenal gland is a heterogeneous mass measuring 3.8 x 4.8 x 4 cm. This is in intimate contact with heterogeneous retroperitoneal mass measuring 5.2 x 3.7 x 6 cm which is in the left periaortic region and surrounds the left renal artery with superior draping of the left renal vein there are additional enlarged left para-aortic and aortic caval masses likely representing adenopathy. Enlarged retrocrural lymph nodes are also present. An index node in the right retrocrural region measures 3 x 2 cm. There is also portal caval adenopathy. A conglomerate mass measures 5.6 x 3.2 x 4 cm and extends from just below the caudate lobe to the level of the left renal vein and is in intimate contact with the uncinate p rocess of the pancreas Pancreas: Please see above discussion. Other than the portal caval mass a butting the uncinate process of the pancreas no other pancreatic masses identified. The pancreatic duct is mildly prominent in the tail measuring up to 4 mm. Kidneys ureters or bladder: Tiny subcentimeter hypodensities in the left kidney likely represent cysts although are too small to characterize. Bladder is moderately distended with urine Genitalia: Hysterectomy GI: There is a surgical clip adjacent to the cecum Vessels/spaces/nodes: Please see above discussion under the adrenal Bones/soft tissues: No aggressive appearing bone lesions are seen Additional findings: None pertinent. IMPRESSION: There is an irregular left-sided retroperitoneal mass encasing the left renal artery with additional enlarged retroperitoneal masses suggesting adenopathy. There is also a large heterogeneous mass in the expected location of the left adrenal gland (a normal-appearing adrenal gland is not seen). Extensive retrocrural adenopathy and a large portacaval mass abutting the uncinate process of the pancreas is also identified. Findings are extremely concerning for neoplastic process. There is mild dilatation of the pancreatic duct within the tail. Portacaval mass appears to be separate from the pancreas however given its intimate contact with the u cinate process the possibility of a true pancreatic mass cannot be entirely ruled out. If further diagnostic imaging is desired MR with and without contrast is recommendedA message was left for NISSA PEREA at 06/14/2018 1:34 PM. Report Dictated By: Yue Dunaway MD at 06/14/2018 1:17 PM Report E-Signed By: Yue Dunaway MD at 06/14/2018 1:35 PM Exam type: ACUTE ABDOMEN SERIES 3 VIEW History: Lower abdomen pain x2 weeks Comparison: Single view chest July 16, 2014. Findings: Supine and upright views of the abdomen demonstrate a nonspecific bowel gas pattern. There is no free air beneath hemidiaphragms. Surgical clips are present right upper quadrant. No gross evidence of organomegaly or pathologic intra-abdominal calcifications. Single view the chest demonstrates no evidence of acute-appearing pulmonary consolidation pleural effusions or pulmonary edema. The cardiac silhouette is normal in size. IMPRESSION: 1. Nonspecific bowel gas pattern No evidence of pulmonary consolidation Report Dictated By: Yue Dunaway MD at 06/14/2018 12:01 PM Report E-Signed By: Yue Dunaway MD at 06/14/2018 12:02 PM ED Course/Re-evaluation ED Course Patient is admitted in exam room, history and physical were obtained. Differential diagnoses were considered. On examination lungs are clear, heart is regular, abdomen is soft and diffusely tender. A CBC, CMP, amylase, lipase, urinalysis were done. Lab results were unremarkable except for an elevated lipase of 440. At that time was decided that we are going to go ahead and do a CT scan of abdomen and pelvis on for possible pancreatitis. Results of the CT scan did show several masses in the abdomen, left adrenal gland, adjacent to the pancreatic head. I discussed findings with patient. I then discussed the case with Dr. Andrews, general surgeon. Her recommendation was to follow-up with oncology, she has had a previous diagnosis of ovarian cancer. I called and talked with the cancer Center. I was able to talk with the director of nurses at the cancer center. She requested that we discharge patient to follow-up with her and she would get everything taken care of. I discussed this with the patient who verbalized understanding and agreement with plan. We will discharge her to follow-up with the cancer Center immediately upon discharge. She is to return to emergency room if condition worsens. Patient verbalized understanding and agreement with plan. Decision to Disposition Date: Jun 14, 2018 Decision to Disposition Time: 14:15 Depart Departure Latest Vital Signs Vital Signs Date Time Temp Pulse Resp B/P (MAP) Pulse Ox O2 Delivery O2 Flow Rate FiO2 06/14/18 12:30 2.0 06/14/18 12:30 58 149/103 (118) 98 06/14/18 10:55 97.8 18 Room Air Impression: Primary Impression: Abdominal mass, LUQ (left upper quadrant) Condition: Improved Disposition: HOME OR SELF-CARE Referrals: SASHA CAMARGO MD (PCP) Patient Instructions: GENERAL ER DISCHARGE INSTRUCTIONS Additional Instructions: Go to the Cancer Center straight away. They will make plans as to the next step. Return to the ER if condition worsens. NISSA PEREA Jun 14, 2018 11:07
[2018-06-14] MEDS ORDERED: NS(*) 0.9% 1000 ML BAG 1,000 ML IV ONE (11:14)
[2018-06-14] MEDS ORDERED: ONDANSETRON 4 MG/2 ML VIAL IVP ONE ×2 (11:15→12:30)
[2018-06-14 11:50] LABS: PLATELET COUNT, AUTOMATED 191 K/uL (150-450)
--- NOTE | 2018-06-14 12:08 | RADIOLOGY IMAGING REPORT ---
FACILITY: [facility] PATIENT NAME: Eda Luis : 1965 MR: [id number] V: [id number] EXAM DATE: ORDERING PHYSICIAN: NISSA PEREA TECHNOLOGIST: Location: [facility] Patient: Eda Luis : 1965 Visit/Account:[id number] Date of Sevice: 06/14/2018 Exam type: ACUTE ABDOMEN SERIES 3 VIEW History: Lower abdomen pain x2 weeks Comparison: Single view chest July 16, 2014. Findings: Supine and upright views of the abdomen demonstrate a nonspecific bowel gas pattern. There is no neri e air beneath hemidiaphragms. Surgical clips are present right upper quadrant. No gross evidence of organomegaly or pathologic intra-abdominal calcifications. Single view the chest demonstrates no evidence of acute-appearing pulmonary consolidation pleural eff usions or pulmonary edema. The cardiac silhouette is normal in size. IMPRESSION: 1. Nonspecific bowel gas pattern No evidence of pulmonary consolidation Report Dictated By: Yue Dunaway MD at 06/14/2018 12:01 PM Report E-Signed By: Yue Dunaway MD at 06/14/2018 12:02 PM WSN:[email or web address]
[2018-06-14] MEDS ORDERED: IOPAMIDOL 76% 150 ML INFUS BTL 150 ML ONE (12:25)
[2018-06-14 12:30] VITALS: BP 149/103
--- NOTE | 2018-06-14 13:39 | RADIOLOGY IMAGING REPORT ---
FACILITY: [facility] PATIENT NAME: Eda Luis : 1965 MR: [id number] V: [id number] EXAM DATE: ORDERING PHYSICIAN: NISSA PEREA TECHNOLOGIST: Location: [facility] [place] Patient: Eda Luis : 1965 Visit/Account:[id number] Date of Sevice: 06/14/2018 ADDENDUM #1 ADDENDUM: There is a possible isodense mass at the junction of the body and tail the pancreas measuring 1.3 cm in diameter. Given the abrupt dilatation of the pancreatic duct in the tail the pancreas MRCP should also be performed to evaluate for potential pancreatic mass in this location. Results were called to NISSA PEREA at 06/14/2018 1:50 PM. Report Dictated By: Yue Dunaway MD at 06/14/2018 1:55 PM Report E-Signed By: Yue Dunaway MD at 06/14/2018 1:[address] ABDOMEN PELVIS W/ CON HISTORY: abdominal pain x3 days, elevated lipase TECHNIQUE: Following administration of IV contrast contiguous axial images acquired through the abdom en/pelvis. Coronal and sagittal reformatting also performed.Dose Lowering Technique One of the following dose optimization techniques was utilized in the performance of this exam: Autom ated exposure control; adjustment of the mA and/or kV according to the patient's size; or use of an i terative reconstruction technique. Specific details can be referenced in the facility's radiology C T exam operational policy. CONTRAST: 75 mL Isovue-370 COMPARISON: CT abdomen pelvis February 02, 2016 and MR the abdomen summary 2015 FINDINGS: Visualized lung bases: There are dependent changes seen in the lower lung graves Hepatobiliary: There postsurgical changes from a cholecystectomy Spleen: Negative. Adrenals: Right adrenal gland appears unremarkable. A normal-appearing left adrenal gland is not se en. In the expected location of the left adrenal gland is a heterogeneous mass measuring 3.8 x 4.8 x 4 cm. This is in intimate contact with heterogeneous retroperitoneal mass measuring 5.2 x 3.7 x 6 c m which is in the left periaortic region and surrounds the left renal artery with superior draping of the left renal vein there are additional enlarged left para-aortic and aortic caval masses likely r epresenting adenopathy. Enlarged retrocrural lymph nodes are also present. An index node in the rig ht retrocrural region measures 3 x 2 cm. There is also portal caval adenopathy. A conglomerate mass measures 5.6 x 3.2 x 4 cm and extends from just below the caudate lobe to the level of the left casi l vein and is in intimate contact with the uncinate process of the pancreas Pancreas: Please see above discussion. Other than the portal caval mass abutting the uncinate proce ss of the pancreas no other pancreatic masses identified. The pancreatic duct is mildly prominent in the tail measuring up to 4 mm. Kidneys ureters or bladder: Tiny subcentimeter hypodensities in the left kidney likely represent cyst s although are too small to characterize. Bladder is moderately distended with urine Genitalia: Hysterectomy GI: There is a surgical clip adjacent to the cecum Vessels/spaces/nodes: Please see above discussion under the adrenal Bones/soft tissues: No aggressive appearing bone lesions are seen Additional findings: None pertinent. IMPRESSION: There is an irregular left-sided retroperitoneal mass encasing the left renal artery with additional enlarged retroperitoneal masses suggesting adenopathy. There is also a large heterogeneous mass in t he expected location of the left adrenal gland (a normal-appearing adrenal gland is not seen). Exten sive retrocrural adenopathy and a large portacaval mass abutting the uncinate process of the pancreas is also identified. Findings are extremely concerning for neoplastic process. There is mild dilata tion of the pancreatic duct within the tail. Portacaval mass appears to be separate from the pancreas however given its intimate contact with the u cinate process the possibility of a true pancreatic mass cannot be entirely ruled out. If further diagnostic imaging is desired MR with and without contrast is recommendedA message was left for NISSA PEREA at 06/14/2018 1:34 PM. Report Dictated By: Yue Dunaway MD at 06/14/2018 1:17 PM Report E-Signed By: Yue Dunaway MD at 06/14/2018 1:35 PM WSN:[email or web address]
== END 2018-06-14 14:21 | disposition home or self-care (01) ==
LOC: ER 11:12
DX: R19.02 Left upper quadrant abdominal swelling, mass and lump (principal)
CPT/HCPCS: 74022; 74177; 81001; 82150; 83690; 85025; 86140; 96361; 96374; 96376; 99284; J2405; J7030; Q9967; 82040; 82247; 82310; 82374; 82435; 82565; 82947; 84075; 84132; 84155; 84295; 84450; 84460; 84520

== ENCOUNTER → 2018-06-20 | Outpatient (CLI) | payer OTHER ==
[2014-05-21 16:33] VITALS: BMI 35.4
[~2018-06-20] MED LIST changes: +GADOBENATE 529MG/1ML 15ML VIAL IVP ONE; +NS(*) 0.9% 50 ML BAG 50 ML ONE; +ONDA4TAB9 PO
--- NOTE | 2018-06-20 10:14 | RADIOLOGY IMAGING REPORT ---
FACILITY: [facility] [place] PATIENT NAME: Eda Luis : 1965 MR: [id number] V: [id number] EXAM DATE: ORDERING PHYSICIAN: SHEILA PEARCE TECHNOLOGIST: Location: [facility] Patient: Eda Luis : 1965 Visit/Account:[id number] Date of Sevice: 06/20/2018 CT neck without contrast Comparison: None Additional pertinent history: History of pancreatic mass with lump involving the left side of the ne ck. TECHNIQUE: Multiple axial images were obtained from the mid portion of the brain through the superio r mediastinum without IV contrast. Coronal and sagittal reformatted images were obtained off the ax ial source data. One of the following dose optimization techniques was utilized in the performance o f this exam: Automated exposure control; adjustment of the mA and/or kV according to the patient's si ze; or use of an iterative reconstruction technique. Specific details can be referenced in the [facility]'s radiology CT exam operational policy. FINDINGS: Visualized portions of the brain parenchyma:Negative Parotid glands/submandibular glands/thyroid: Negative Orbits: Negative Paranasal sinuses: Small mucous retention cysts involving both maxillary sinuses. Otherwise negativ e Parapharyngeal spaces: Negative Nasopharynx/oropharynx/hypopharynx: Negative Tonsillar pillars: Negative Oral tongue/tongue base: Negative True and false cords: Negative Lymph node assessment: Large left level 4 lymph node corresponding to the patient's palpable abnormal ity measuring 2.5 x 3.6 cm highly concerning for metastatic disease given the patient's history. A f ew other small nonpathologically enlarged lymph nodes within the neck. Surrounding soft tissues: Negative Vasculature: Minimal calcified atherosclerotic plaque involving the thoracic aortic arch. Lung apices: Negative Osseous structures: Negative IMPRESSION: 1. Large left level 4 lymph node highly concerning for metastatic disease given patient's history Report Dictated By: Shaggy Najera MD at 06/20/2018 9:59 AM Report E-Signed By: Shaggy Najera MD at 06/20/2018 10:09 AM WSN:[id number]
--- NOTE | 2018-06-21 14:23 | RADIOLOGY IMAGING REPORT ---
FACILITY: [facility] [place] PATIENT NAME: Eda Luis : 1965 MR: [id number] V: [id number] EXAM DATE: ORDERING PHYSICIAN: SHEILA PEARCE TECHNOLOGIST: Location: [facility] [place] Patient: Eda Luis : 1965 Visit/Account:[id number] Date of Sevice: 06/21/2018 MR ABDOMEN MRCP W & W/O CONTRAST HISTORY: Pancreatic mass TECHNIQUE: Multiplanar multisequence magnetic resonance imaging of the abdomen without and with intr avenous contrast including magnetic resonance cholangiopancreatography (MRCP). CONTRAST: 15 milliliters of MultiHance COMPARISON: CT abdomen and pelvis June 14, 2018 and MR abdomen February 15, 2016 FINDINGS: Visualized lung bases: Grossly unremarkable. Liver: Negative. Gallbladder: There postsurgical changes from a cholecystectomy Bile ducts: Nondistended and unremarkable. Spleen: Negative. Adrenal glands: Right adrenal gland appears unremarkable. There is a 4.4 x 4 x 3.9 cm heterogeneous minimally enhancing left adrenal mass extremely concerning for malignancy Pancreas: There is a 1.4 cm round mass at the junction of the body and tail of the pancreas demonstra [place] decreased T1 and T2 signal intensity increased signal intensity on the opposed phase images and n o significant contrast enhancement. The pancreatic duct distal to this mass is dilated up to 4.5 mm. . Pancreatic masses are extremely concerning for pancreatic malignancy. Kidneys: Small bilateral renal cysts again seen bilaterally. The previously noted Bosniak type II cy st in the upper pole of the left kidney is decreased in size and now measures 8 mm in diameter Vessels/spaces/nodes: Bulky retrocrural adenopathy is again seen, corresponding to the recent CT scan . A district representative node measures 3.1 x 2.6 cm. . Bulky retroperitoneal adenopathy surrounding the left renal artery with anterior draping of the l eft renal vein is also again noted and extends posterior to the aorta.This measures approximately 7.1 x 6.5 x 4.5 cm. Bulky portal caval abby mass also again noted measuring approximately 4.1 x 3 x 5. 8 cm Visualized GI: Grossly unremarkable. Bones/soft tissues: Unremarkable. IMPRESSION: There is a 1.4 cm round masses junction of the body and tail the pancreas concerning for pancreatic n eoplasm. There is dilatation of the pancreatic duct distal to this mass. There is bulky retrocrural and retroperitoneal and portacaval adenopathy as described extremely jono rning for metastases. There is a large heterogeneous left adrenal mass also extremely concerning for metastatic lesion Report Dictated By: Yue Dunaway MD at 06/21/2018 11:55 AM Report E-Signed By: Yue Dunaway MD at 06/21/2018 2:20 PM WSN:[email or web address]
== END ==
LOC: MRI 01:00
PROVIDERS: ATTEND Surgery
DX: R59.0 Localized enlarged lymph nodes (principal); K86.89 Other specified diseases of pancreas; E27.8 Other specified disorders of adrenal gland
CPT/HCPCS: 70490; A9577; J7050; 74183

== ENCOUNTER 2018-06-27 01:06 | Observation (INO) | payer OTHER ==
[2014-05-21 16:33] VITALS: Ht 175.3 cm; Wt 98.9 kg
[~2018-06-27] VITALS: Ht 175.3 cm; Wt 98.9 kg
[2018-06-27] VITALS (16 sets, daily range): BP systolic 111–149; BP diastolic 72–100
[~2018-06-27 01:06] MED LIST changes: -GADOBENATE 529MG/1ML 15ML VIAL IVP ONE; +LEV125 PO; -NS(*) 0.9% 50 ML BAG 50 ML ONE
[2018-06-27] MEDS: NORMOSOL R SOLN(*) 1000 ML BAG 1,000 ML IV PRN ×2 (10:53→17:12)
[2018-06-27] MEDS ORDERED: PROPOFOL EMUL(*) 10MG/ML 20 ML 20 ML ONE (11:06)
[2018-06-27] MEDS ORDERED: LIDOCAINE MPF 1% 5 ML VIAL ONE (11:06)
[2018-06-27] MEDS ORDERED: DEXAMETHASONE SOD 4 MG/ML VIAL ONE ×2 (11:08)
[2018-06-27] MEDS ORDERED: ONDANSETRON 4 MG/2 ML VIAL ONE ×2 (11:08→17:33)
[2018-06-27] MEDS ORDERED: fentaNYL CITR 100 MCG/2 ML AMP ONE ×3 (11:09→14:21)
[2018-06-27] MEDS ORDERED: HEPARIN SOD LCK FLSH 100 UN/ML ONE (11:09)
[2018-06-27] MEDS ORDERED: NS(*) 0.9% 10 ML VIAL 20 ML ONE (11:10)
[2018-06-27] MEDS ORDERED: KETAMINE HCL 200 MG/20 ML MDV ONE (11:10)
[2018-06-27] MEDS ORDERED: ROPIVACAINE 0.5% 20 ML VIAL ONE (11:10)
[2018-06-27] MEDS ORDERED: ceFAZolin(*) 2GM/D5W 50ML 50 ML IVPB ONE ×2 (11:14→11:21)
[2018-06-27] MEDS ORDERED: FAMOTIDINE 20 MG TAB PO ONE (11:25)
[2018-06-27] MEDS ORDERED: LIDOCAINE/SOD BICARB 8.4% SYR ID ONE (11:25)
[2018-06-27] MEDS ORDERED: MIDAZOLAM 2 MG/2 ML VIAL IVP PRN (11:25)
[2018-06-27] MEDS ORDERED: PROMETHAZINE 25 MG/ML 1 ML AMP ONE (13:38)
[2018-06-27] MEDS ORDERED: TRAM-420 PO (13:44)
--- NOTE | 2018-06-27 13:51 | Short(Outpt) Discharge Summary ---
Discharge Summary Reason for Hosp/Final Diag: (1) Supraclavicular lymphadenopathy Status: Chronic Hospital Course & Plan: Left supraclavicular lymph node open biopsy and left subclavian vein power port placement completed without problems. (2) Retroperitoneal lymphadenopathy Status: Chronic (3) Pancreatic mass Status: Chronic Departure Discharge to: Home, Self Care Discharge Instructions Home Meds Active Scripts Tramadol Hcl (TRAMADOL HCL) 50 Mg Tablet, 1 TAB PO Q4-6H PRN for PAIN, #30 TAB 0 Refills Prov:SHEILA PEARCE MD 06/27/18 Ondansetron 4 Mg Odt (ONDANSETRON 4 MG ODT) 4 Mg Tab.rapdis, 1 TAB.SHASHANK PO TID, #20 TAB 3 Refills Prov:SHEILA PEARCE MD 06/26/18 Montelukast Sodium (SINGULAIR) 10 Mg Tablet, 1 TAB PO PRN PRN for ALLERGY SYMPTOMS for 30 Days, #30 TAB 6 Refills Prov:SHEILA PEARCE MD 06/26/18 Pyridoxine Hcl (VITAMIN B-6) 100 Mg Tablet, 100 MG PO BID, #60 TAB Prov:MATY WYATT HOME COMFORT ADVISOR-BC, ONC 07/21/14 Reported Medications Levothyroxine Sodium (LEVOTHYROXINE SODIUM) 0.125 Mg Tab, 0.125 MG PO QDAY, TAB 06/26/18 Pregabalin (LYRICA) 100 Mg Capsule, 150 MG PO BID, CAPSULE 10/04/17 Cetirizine Hcl (ZYRTEC) 10 Mg Capsule, 10 MG PO QDAY PRN for ALLERGY SYMPTOMS, CAPSULE 08/14/17 Magnesium Amino Acid Chelate (MAGNESIUM) Unknown Strength Tablet, 100 MG PO QDAY 02/25/16 Calcium Carbonate (CALCIUM) 500 Mg Tab.chew, 500 MG PO, TAB.CHEW 02/25/16 Cholecalciferol (Vitamin D3) (VITAMIN D3) 1,000 Unit Tablet, 800 UNIT PO, TAB 02/25/16 Aspirin (ASPIRIN) 81 Mg Tab.chew, 81 MG PO QDAY, TAB.CHEW 02/17/15 Acetaminophen (TYLENOL EXTRA STRENGTH) 500 Mg Tablet, 500 MG PO PRN 12/11/14 Albuterol Sul Hfa 90 Mcg 8 Gm (VENTOLIN HFA 90 MCG 8 GM) 8.5 Gm Hfa.aer.ad, 1-2 PUFF IH 3-4XD PRN for ALLERGY SYMPTOMS 07/10/14 Olopatadine (PATADAY) 0.05 Ml Soln, 2.5 ML OD 07/10/14 Fluticasone Propionate (Flonase Allergy Relief) 9.9 Ml [place].susp, 50 MCG INH PRN for ALLERGY SYMPTOMS 07/10/14 Metronidazole (METRONIDAZOLE) 60 Gm Gel..gram., 60 GM .ROUTE DAILY 07/10/14 Doxycycline Hyclate (DOXYCYCLINE HYCLATE) 100 Mg Capsule, 100 MG PO QDAY, CAPSULE 05/13/14 Discontinued Reported Medications Levothyroxine Sodium (LEVOTHYROXINE SODIUM) 100 Mcg Tablet, 125 MCG PO QDAY 05/13/14 Discontinued Scripts Amoxicillin/Pot Clav 875-125 Mg Tab (AUGMENTIN 875-125 TABLET) 1 Each Tablet, 1 TAB PO Q12H for 7 Days, #14 TAB 0 Refills Prov:BONITA MORRIS DNP, HOME COMFORT ADVISOR-BC 02/25/18 Follow up Referrals: General Surgery - 07/09/18 @ Surgery, General with SHEILA PEARCE MD You have a follow up appointment scheduled with Dr. Pearce on 07/09/18, at 10:30am. Diet: Regular Activity: As Tolerated Special Instructions: You may remove the white surgical dressings on 06/29/18, then you can shower. After showering, leave the incisions open to air but leave the steristrips in place until they fall off on their own. Do not immerse the incisions for 2 weeks. Don't take any NSAIDS (non-steroidal anti-inflammatory drugs, i.e. ibuprofen, motrin, advil, aleve, aspirin, naproxen, or naprosyn) or any medication that contains NSAIDS for 1 week after surgery to allow the surgical sites to heal without any bleeding. You can use tramadol for pain control. SHEILA PEARCE MD Jun 27, 2018 13:51
--- NOTE | 2018-06-27 14:04 | Post Operative Progress Note ---
Post Operative Progress Note Date: Jun 27, 2018 Time: 13:53 Surgeon: Sunil Dictation number: [id number] Anesthesia: LMA by Dr. Fall Pre-Op Diagnosis: Left supraclavicular lymphadenopathy Metastatic neoplasm Post-Op Diagnosis: SUMAN Findings: None Procedure(s): 1) Left supraclavicular lymph node open biopsy 2) Left subclavian vein power port placement Specimen Removed:(May be N/A): 1) Left supraclavicular lymph node Complications: None Fluids: See anesthesia record Estimated Blood Loss: Minimal Date OP Note Dictated: Jun 27, 2018 Time OP Note Dictated: 13:57 SHEILA PEARCE MD Jun 27, 2018 14:04
--- NOTE | 2018-06-27 14:06 | RADIOLOGY IMAGING REPORT ---
FACILITY: [facility] PATIENT NAME: Eda Luis : 1965 MR: [id number] V: [id number] EXAM DATE: ORDERING PHYSICIAN: SHEILA PEARCE TECHNOLOGIST: [place] [facility] [place]da [place] : 1965 Visit/Account:[id number] Date of Sevice: 06/27/2018 Exam type: FLUORO NG TUBE PLACEMENT History: POWER PORT PLACEMENT Comparison: None. Findings: Two fluoroscopic intraoperative images demonstrate placement of a left subclavian power port the dist al tip projecting over the superior vena cava. Surgical clip and sponge marker projects over the lef t supraclavicular region on this intraoperative image. The continuous fluoroscopy dose area product was 2.9357 Apple per centimeter squared IMPRESSION: 1. As above Report Dictated By: Yue Dunaway MD at 06/27/2018 2:00 PM Report E-Signed By: Yue Dunaway MD at 06/27/2018 2:01 PM WSN:[email or web address]
--- NOTE | 2018-06-27 14:08 | RADIOLOGY IMAGING REPORT ---
FACILITY: [facility] PATIENT NAME: Eda Luis : 1965 MR: [id number] V: [id number] EXAM DATE: ORDERING PHYSICIAN: SHEILA PEARCE TECHNOLOGIST: Location: Patient: Eda Luis : 1965 Visit/Account:[id number] Date of Sevice: 06/27/2018 Exam type: CHEST SINGLE AP History: Left subclavian power port placement Comparison: July 16, 2014. Findings: Previous right IJ power port is no longer seen. There is now a left subclavian implanted port distal tip projecting over the superior vena cava. There is no evidence of a pneumothorax. The lungs are free of consolidation. There is mild chronic blunting left costophrenic angle. The cardiac silhouet te is normal in size. IMPRESSION: 1. Left subclavian implanted port appears to been good position with the distal tip projecting over the superior vena cava. No evidence of pneumothorax or pulmonary consolidation Report Dictated By: Yue Dunaway MD at 06/27/2018 2:01 PM Report E-Signed By: Yue Dunaway MD at 06/27/2018 2:03 PM WSN:[id number]
--- NOTE | 2018-06-27 14:50 | OPERATIVE REPORT 1 ---
EVENT DATE: June 27, 2018 SURGEON: Fabrice Barber MD ANESTHESIOLOGIST: Alexander Fall MD ANESTHESIA: LMA. PREOPERATIVE DIAGNOSIS 1. Left supraclavicular enlarged lymph node. 2. Metastatic neoplasm. POSTOPERATIVE DIAGNOSIS 1. Left supraclavicular enlarged lymph node. 2. Metastatic neoplasm. PROCEDURES PERFORMED 1. Left neck supraclavicular lymph node open biopsy. 2. Left subclavian vein PowerPort placement. COMPLICATIONS None. CONDITION Stable. ESTIMATED BLOOD LOSS Minimal. INDICATIONS This is a 52-year old female who was referred to me by the oncologist after recently been found to have significant retroperitoneal lymphadenopathy in the left supraventricular and a very enlarged lymph node. She has a previous history of ovarian cancer. I was asked to biopsy the lymph node for definitive diagnosis as well as place a PowerPort as she will most certainly need chemotherapy. She has a previous history of a PowerPort when she was getting chemotherapy to treat her ovarian cancer and she suffered clot in her IJ, which has led to a sclerotic right internal jugular vein. The left internal jugular vein is accessible to large lymph node, compressing it. For this reason, I placed a left subclavian PowerPort. DESCRIPTION OF PROCEDURE Patient was brought to the operating room and placed supine on the operating table. LMA anesthesia was administered and her neck, chest and shoulders were prepped and draped in sterile fashion. A time-out was completed and I marked the skin at a skin crease in her left neck overlying the palpable mass and then anesthetized the skin with 0.5% ropivacaine plain. I made an incision right in the skin crease, dissected through the derm and subcutaneous fat through the platysmas muscle and identified the lymph node. I started to dissect around the lymph node but it was fairly adherent to surrounding structures so to minimize morbidity to this patient I started to go through the lymph node tissue itself and not try to remove the entire lymph node but just about half of the lymph node mass. This was then passed off the field and obviously divided lymph node parenchyma was very oozy so I controlled this with initially electrocautery but then placed Surgicele, Gelfoam and pressure and had my promotions assistant sales marketing hold pressure while I began on the port. The patient was placed in Trendelenburg and I accessed the subclavian vein in one attempt by inserting the needle in the deltopectoral groove and underneath the clavicle and then aspirated blood into the vein. I then thread the wire through the needle and then used the C-arm to position the wire in the SVC. It initially wanted to go up into the IJA remarkably even through the IJA was being compressed by what was a lymph node but it was possibly decompressed after I had removed a significant mass of the lymph node. I backed the wire out and under fluoroscopic guidance was re-advance it into the SVC. I then anesthetized the left subclavian skin and made a transverse incision to accommodate the port and I included where the wire exited in this incision. I then dissected through dermis and subcutaneous fat and then caudad to the incision and created a subcutaneous pocket. I then made sure this was hemostatic and then with the patient in Trendelenburg threaded the dilator and sheath over the wire and removed the wire and dilator after confirming the position in the SVC by the C-arm. I then threaded the catheter through the sheath and then removed the sheath and used the C-arm to position the tip in the SVC. I cut the catheter length, placed the port on the catheter and then sewed the catheter down in the underlying fascia and then aspirated blood and then flushed the catheter and port with 10 mL of normal saline followed by 5 mL of 100 units/mL of heparinated saline and then aspirated and flushed without any problems. I then took some more C-arm images. I did get confirmed good placement. No kinks or twists and it looked it. I then closed the skin here with interrupted 3-0 Vicryl deep dermal sutures, 4-0 Monocryl subcuticular sutures. I then went back up to the neck and removed all of the packing and there was still oozing and again worked to control this with bipolar electrocautery and pressure and hemostatic agent such as Surgicele and Gelfoam. Ultimately, I was able to get it completely dry so we irrigated and dried this wound and I left some piece of Surgicel and then Gelfoam on top of the Surgicel in this place and then closed the platysmas with interrupted 3-0 interrupted Vicryl sutures and closed the skin with interrupted 3-0 Vicryl deep dermal sutures and 4-0 Monocryl running subcuticular suture. Skin was cleaned and dried and Steri-Strips applied followed by sterile surgical dressings. The patient was awakened and LMA removed and she was transferred to the recovery room in stable condition, having tolerated the procedure without any apparent problems. GARTH
[2018-06-27] MEDS ORDERED: traMADol 50 MG TAB ONE (18:27)
--- NOTE | 2018-06-27 19:55 | NUR ---
1800 RECEIVED PT FROM Nina HERRERA RN, SBAR REPORT RECEIVED. PT RESTING IN BED. C/O OF UPPER RIGHT QUADRANT PAIN RATED AT 5/10. STATES IS TYPICAL FOR HER DUE TO HER PANCREATIC CA. CONT TO C/O NAUSEA. PER Nina HERRERA PT WAS GIVEN ZOFRAN 4 MG. PT HAS DRESSING TO LEFT NECK THAT APPEARS TO HAVE BLOODY DRAINAGE. Nina HERRERA REPORTED THAT CHANGE IN DRESSING APPEARANCE IS NEW. ICE PACK APPLIED. 1810 PT ATTEMPTS TO VOMIT, DRY HEAVING. PT REPORTS THE NEED TO EMPTY HER BLADDER. PT UP TO BR WITH ASSISTANCE. 1820 PT BACK TO BED AMB WITHOUT DIFFICULTY. POSITIONED FOR COMFORT. ICE PACK REFRESHED AND APPLIED TO LEFT NECK AND CHEST. 1830 PT C/O OF RIGHT UPPER QUADRANT PAIN THAT HAS MOVED TO STRERNUM. REPORTS 7/10. PT C/O TO COMPLAIN OF NAUSEA. VOMITED SMALL AMT OF YELLOW BILE. PT REPORTS IS FEELING BETTER. RESTING IN BED 184 PT REPORTS FEELS BETTER. PT'S MOTHER STATES HER RUQ PAIN HAS CHANGED AND HAS NOT BEEN THIS BAD. NOT COMFORTABLE TAKING HER HOME 1849 PT RESTING REPORTS THE NEED TO EMPTY BLADDER AGAIN. BEDSIDE COMMODE PLACE NEAR BED. PT ABLE TO EMPTY BLADDER. 1899: PT NAUSEATED AGAIN ATTEMPT TO VOMIT, CONT WITH DRY HEAVES. RUQ PAIN RETURNING 7/10. 1909: RUQ PAIN RETURNS OFF AND ON 1929: PT RESTING, MOM AT BEDSIDE. 1939 PT C/O OF RUQ PAIN THAT RADIATES TO STERNUM 7/10. PAIN LAST FOR 5 MIN. REMAINING FENTANYL GIVEN TO PT. INFORMED DR PEARCE OF PT RUQ PAIN. 1949 PT REPORTS THE NEED TO EMPTY HER BLADDER. BEDSIDE COMMODE PLACED AT BESIDE. 1954 PT ON BEDSIDE COMMODE. C/O NAUSEA NO VOMITING 1999: PT STATE RUQ PAIN DOWN TO 3-4/10 STATES FEELS BETTER. REPORTS HAS HAD THIS KIND OF PAIN FOR THE PAST 2-3 WEEKS EXCEPT HAS NOT RADIATED TO STERNUM. 2009 PT BACK IN BED, REPORTS RUQ/STERNUM PAIN DOWN. 2019 PT IN BED RESTING, STATUS UNCHANGED.
--- NOTE | 2018-06-27 20:30 | NUR ---
2029 DR PEARCE AT BEDSIDE. ASSESSING PT. 2039: PT DISCHARGE ASSESSMENT COMPLETED. PT TO BE TRANSFERED TO FLOOR. 2049 SBAR REPORT GIVEN TO GUSTAVO PATRICIO VIA PHONE. 2099 PT TRANSPORTED TO ROOM 2270 VIA CART ACC BY Jh RODRIGUEZ RN. 2104 PT UP TO BR UPON ARRIVE TO ROOM. AMB WITH 1 ASSIST. PT CARE TRANSFERED TO GUSTAVO PATRICIO
[2018-06-27] MEDS ORDERED: BENZONATATE 100 MG CAP PO PRN (20:50)
[2018-06-27] MEDS ORDERED: ALBUTEROL/IPRATROPIUM 3 ML NEB NEB PRN (20:50)
[2018-06-27] MEDS ORDERED: ONDANSETRON 4 MG/2 ML VIAL IVP PRN (20:50)
[2018-06-27] MEDS ORDERED: SCOPOLAMINE 1.5 MG PATCH TD PRN (20:50)
[2018-06-27] MEDS ORDERED: FLUSH 10 ML SYR IVP PRN (20:50)
[2018-06-27] MEDS ORDERED: MORPHINE 2 MG/ML SYR IVP PRN (20:50)
[2018-06-27] MEDS ORDERED: ACETAMINOPHEN 325 MG TAB PO PRN (20:50)
--- NOTE | 2018-06-27 20:54 | Miscellaneous Provider Note ---
Miscellaneous Provider Note Note Pt having issues with abdominal pain radiating up into her chest and cough with nausea and small volume emesis. Will admit overnight for symptomatic relief. SHEILA PEARCE MD Jun 27, 2018 20:54
[2018-06-27] MEDS ORDERED: traMADol 50 MG TAB PO PRN (21:25)
[2018-06-27] MEDS ORDERED: ONDANSETRON 4 MG ODT TABDP SL PRN (21:25)
[2018-06-27] MEDS: CALCIUM CARBONATE 500 MG CHEW PO SCH (21:30)
[2018-06-27] MEDS: PREGABALIN 150 MG CAPSULE PO SCH (21:39)
[2018-06-27] MEDS: FAMOTIDINE 20 MG TAB PO SCH (22:03)
[2018-06-27] MEDS: DOCUSATE SODIUM 100 MG CAP PO SCH (22:04)
[2018-06-28] VITALS: BP 116/66
[2018-06-28 01:00] VITALS: BP 107/60
[2018-06-28 04:00] VITALS: BP 128/80
[2018-06-28] MEDS ORDERED: LEVOTHYROXINE SOD 0.125 MG TAB PO SCH (06:00)
[2018-06-28 07:15] VITALS: BP 120/80
[2018-06-28] MEDS: CALCIUM CARBONATE 500 MG CHEW PO SCH (08:31)
[2018-06-28] MEDS: FAMOTIDINE 20 MG TAB PO SCH (08:31)
[2018-06-28] MEDS: PREGABALIN 150 MG CAPSULE PO SCH (08:33)
[2018-06-28] MEDS: DOCUSATE SODIUM 100 MG CAP PO SCH (08:49)
[2018-06-28] MEDS ORDERED: CETIRIZINE HCL 10 MG TAB PO PRN (09:00)
--- NOTE | 2018-06-28 14:24 | Medical Nutrition Therapy ---
Nutrition Anthropometrics Height (Inches): 69.00 Height (Calculated Centimeters: 175.831055 Weight (Pounds): 218 Weight (Calculated Kilograms): 98.883 BMI: 32.2 Júnior Nutrition Score: Probably Inadequate Júnior Nutrition Risk Score: 18 Dietary Referral Nutrition Risk Factors: Unplanned Loss >10lbs Nutrition Risk Comment: cancer pain Physical Findings Physical Appearance: Obese BMI 30-39 Skin Appearance Skin Appearance: Edema Edema Location Modifier: Edema Location: Type of Edema: Degree of Edema: Gastrointestinal Symptoms GI Symtoms: Nausea Tube Present: Bowel Sounds: Recent Bowel Pattern: Stool Characteristics: Nutritional Diagnosis Nutritional Risk Acuity 2: Unintended Wt Loss >5%/mo Nutritional Risk Acuity 3: Nausea, Cancer Nutritional Acuity: 2-Moderate Nutrition Diagnosis: Involuntary Wt. Loss Nutrition Etiology: Physiological Causes Nutrition Problem/Etiology/Sym: AEB current wt 218#, wt 233# 05/24/18. Adjusted Energy Requirement Re: 2625 (35kcal/kg IBW) Protein Requirement: 98 (1gm/kg) Fluid Requirement: 2625 (1ml/kcal) Diet Type: Diet as Tolerated EARLINE/REG Nutrition Intervention: Cont diet as ordered, Encourage intake Nutrition Monitoring & Eval Nutrition Goals: Eat 75-100% Meal RD Patient Assessment Time: [address] Assessment Type: RD Assessment Patient Nutrition Acuity: 2-Moderate Follow Up Date: Jul 02, 2018 Nutritional Comment: 07/02 Pt admitted for Supraclavicular lymphadenopathy. Pt on regular diet and reported n/v however ate 100% of first meal in facility. Pt has dx ovarian CA. Pt demonstrated 6.4% wt loss/ 1 month. BMI is currently in class 1 obestiy range. Will cont to monitor and encourage intake. JOSE MIGUEL BRUNO Jun 28, 2018 14:24
== END 2018-06-28 07:41 | disposition home or self-care (01) ==
LOC: OR 01:06 → MED 21:04 → INTOOBSV 21:04
PROVIDERS: ADMIT Surgery; ATTEND Surgery
DX: R59.0 Localized enlarged lymph nodes (principal); C77.0 Secondary and unspecified malignant neoplasm of lymph nodes of head, face and neck
CPT/HCPCS: 36561; 38500; 71045; 77001; 88305; C1788; G0378; J1100; J2001; J2250; J2270; J2405; J2550; J2704; J2795; J3010; J3490; S0119; J0690

== ENCOUNTER → 2018-07-18 | Outpatient (CLI) | payer OTHER ==
[2014-05-21 16:33] VITALS: Wt 99.9 kg
[~2018-07-18] MED LIST changes: +LORA-1455 PO; +PEGFILGRASTIM 6 MG/0.6 ML SYR SUBQ ONE; +PROC10TA4; +TRAM-420 PO
[2018-07-18 14:30] VITALS: BP 122/68
== END ==
LOC: SPU 14:29
PROVIDERS: ATTEND Internal Medicine Hematology
DX: C7A.8 Other malignant neuroendocrine tumors (principal)
CPT/HCPCS: 96372; J2505

== ENCOUNTER → 2018-08-09 | Outpatient (CLI) | payer OTHER ==
[2014-05-21 16:33] VITALS: BMI 35.4
[~2018-08-09] MED LIST changes: +CLIN300C99 PO
[2018-08-09 15:09] VITALS: BP 94/61
== END ==
LOC: SPU 14:52
PROVIDERS: ATTEND Internal Medicine Hematology
DX: C7A.8 Other malignant neuroendocrine tumors (principal)
CPT/HCPCS: 96372; J2505

== ENCOUNTER 2018-08-15 11:59 | Outpatient (RCR) | payer OTHER ==
[2014-05-21 16:33] VITALS: Ht 173.5 cm; Wt 96.1 kg
[2018-05-21 08:28] LABS: PLATELET COUNT, AUTOMATED 204 K/uL (150-450)
[2018-05-21 08:42] VITALS: BP 123/78
[2018-05-24 11:38] VITALS: BP 124/81
--- NOTE | 2018-05-24 23:40 | [facility] ONCOLOGY NOTE ---
EVENT DATE: May 24, 2018 DIAGNOSES 1. Stage IC ovarian serous adenocarcinoma. 2. Hypothyroidism. 3. Rosacea. 4. Asthma. CHIEF COMPLAINT Patient is here today for followup of her ovarian carcinoma. ONCOLOGY HISTORY Eda Luis is a 52-year-old woman, premenopausal at presentation, pelvic pain, thought to be uterine myoma. DIAGNOSTIC EVALUATION Pelvic ultrasound April 2014 showed posterior uterine myoma with an otherwise fairly normal uterus. PROCEDURES 1. Diagnostic laparoscopy with total abdominal hysterectomy and bilateral salpingo-oophorectomy with diagnostic cystoscopy done on May 20, 2014, and the pathology came back positive for serous adenocarcinoma, high grade, involving the left ovary. The tumor appears to involve the ovarian surface. The left fallopian tube is cystically dilated and otherwise unremarkable. There was also surface adenocarcinoma high grade involving the right ovary and right fallopian tube. No definitive involvement of the ovarian surface is recognized. There was also benign leiomyoma. 2. [place] robotic laparoscopic bilateral pelvic lymph node dissection including left external iliac, left internal iliac, left obturator lymph node dissection, right external iliac, right internal iliac, right obturator lymph node dissection, multiple peritoneal biopsies, partial omentectomy with appendectomy, and diagnostic laparoscopy with lysis of adhesions done by Dr. Brandon Baker on June 11, 2014. PATHOLOGY The debulking surgery was negative regarding the lymph nodes of the omentum and the staging procedure. STAGE Stage IC (pT1c pN0 cM0). TREATMENT The patient has been evaluated by Dr. Brandon Baker with recommendation of six cycles of carboplatin and Taxol after her surgery. The patient had started chemotherapy with carboplatin and Taxol on July 21, 2014. The patient completed six cycles of adjuvant chemotherapy with carboplatin and Taxol on November 02, 2014. HISTORY OF PRESENT ILLNESS Patient is here today for followup of her ovarian carcinoma. She is doing fine currently. She is complaining of some nasal discharge and a dry cough. She has also occasional wheezing. She continues to have tingling and numbness in her hands and feet from neuropathy from her chemotherapy. PAST MEDICAL HISTORY 1. Hypothyroidism. 2. Ovarian cancer. 3. Asthma. 4. Rosacea. 5. Headaches. PAST SURGICAL HISTORY 1. Total abdominal hysterectomy with bilateral salpingo-oophorectomy May 20, 2014. 2. Debulking surgery for ovarian cancer done on June 11, 2014. 3. TMJ surgery. 4. Surgery for fractured left ankle. 5. [place] tooth extraction. 6. Laparoscopic cholecystectomy done on March 02, 2016. SOCIAL HISTORY The patient is single. She does not have children. 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 Denies any abuse of tobacco, alcohol, or drugs. FAMILY HISTORY Father had prostate cancer at the age of 72. There is no family history of ovarian or breast cancer in the family. CURRENT MEDICATIONS 1. Levothyroxine 100 mcg daily. 2. Doxycycline 100 mg daily. 3. Metronidazole 1% topical daily. 4. Fluticasone propionate 50 mcg daily. 5. Albuterol inhaler 90 mcg as needed. 6. Ibuprofen 600 mg as needed. 7. Zofran 4 mg p.r.n. for nausea and vomiting. 8. Percocet 5/325 mg p.r.n. for pain. ALLERGIES ZITHROMAX which causes flare up of rosacea and MUCINEX D which causes numbness of her face. REVIEW OF SYSTEMS CONSTITUTIONAL: No appetite or weight change. No fever, chills, or sweating. No recent infection. HEENT: Ears: No tinnitus or hearing problem. Nose: She has nasal discharge. No epistaxis. Throat: No sore throat or mouth ulcers. Eyes: No diplopia or visual changes. RESPIRATORY: She has dry cough and wheezing. No expectoration or hemoptysis. CARDIOVASCULAR: No chest pain, orthopnea, or paroxysmal nocturnal dyspnea (PND). No edema. No palpitations. GASTROINTESTINAL: No nausea or vomiting. No diarrhea or constipation. No change in bowel movements. No heartburn or swallowing difficulties. No abdominal pain. No jaundice. No hematemesis, melena, or rectal bleeding. GENITOURINARY: No hematuria or dysuria. MUSCULOSKELETAL: No pain in the muscles, joints, or bones. NEUROLOGICAL: She has tingling and numbness in her hands or feet. No headaches or convulsions. HEMATOLOGIC/LYMPHATIC: No bleeding or easy bruising. No weakness or fatigue. No enlarged lymph nodes. SKIN: No skin rash or lumps. PSYCHIATRIC: No anxiety or depression. PHYSICAL EXAMINATION GENERAL: Looks stable. Well developed, well nourished, and in no acute distress. VITAL SIGNS: Blood pressure 129/81, pulse 76 per minute, respirations 16 per minute, temperature 97, pulse ox 96% on room air. HEENT: Head: Atraumatic. No sinus tenderness to palpation. Eyes: No icterus or conjunctivitis. Mouth and throat: No oral thrush or mucositis. NECK: Supple. No cervical or supraclavicular lymphadenopathy. LUNGS: Clear to auscultation and percussion bilaterally. HEART: Regular rate and rhythm. No gallops, murmurs, clicks, or rubs. ABDOMEN: Soft and lax. No tenderness. No hepatosplenomegaly. No masses. EXTREMITIES: No cyanosis, clubbing, or edema. LYMPHATICS: No peripheral lymphadenopathy. NEUROLOGICAL: Conscious, alert, and oriented times three. No focal motor or sensory deficits. PSYCHIATRIC: Mood and affect appear normal. SKIN: No skin rash, bruise, or purpuric eruption. DIAGNOSTIC DATA CBC showed white count 4.5, hemoglobin 14.9, hematocrit 44.5, platelets 204,000. Chem panel normal except chloride 109, AST 37. CA-125 is 15. ASSESSMENT 1. Stage IC (pT1c pN0 cM0) ovarian adenocarcinoma involving both ovaries. Left ovarian cancer is present on the surface of the ovary, while there is no surface involvement on the right ovarian cancer. Patient had total abdominal hysterectomy/bilateral salpingo-oophorectomy with incidental finding of ovarian cancer. She had her hysterectomy on the May, and debulking surgery was done by Dr. Brandon Baker in [place] June 16, 2014. CA-125 prior to treatment was 25. Patient received six courses of adjuvant chemotherapy with carboplatin and Taxol between July 21, 2014, through November 06, 2014. Her current CA-125 is normal at 15, which is stable. Patient currently in complete remission. I am planning to continue followup. I will see her again in four months with CBC, chemistry panel, and CA-125. 2. 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 She is currently on Lyrica with stable symptoms. 3. Osteoarthritis. PLAN 1. Continue followup. 2. Patient to return in four months with CBC, chem panel, CA-125. 3. Patient to contact us for any new concerns or complaints. MTDD
[2018-06-14 14:36] VITALS: BP 156/97
--- NOTE | 2018-06-15 07:22 | [facility] ONCOLOGY NOTE ---
EVENT DATE: June 14, 2018 DIAGNOSES 1. Stage IC ovarian serous adenocarcinoma. 2. Hypothyroidism. 3. Rosacea. 4. Asthma. CHIEF COMPLAINT Patient is here today to discuss the results of her abnormal CT abdomen and pelvis. ONCOLOGY HISTORY Eda Luis is a 52-year-old woman, premenopausal at presentation, pelvic pain, thought to be uterine myoma. DIAGNOSTIC EVALUATION Pelvic ultrasound April 2014 showed posterior uterine myoma with an otherwise fairly normal uterus. PROCEDURES 1. Diagnostic laparoscopy with total abdominal hysterectomy and bilateral salpingo-oophorectomy with diagnostic cystoscopy done on May 20, 2014, and the pathology came back positive for serous adenocarcinoma, high grade, involving the left ovary. The tumor appears to involve the ovarian surface. The left fallopian tube is cystically dilated and otherwise unremarkable. There was also surface adenocarcinoma high grade involving the right ovary and right fallopian tube. No definitive involvement of the ovarian surface is recognized. There was also benign leiomyoma. 2. Da Dwain robotic laparoscopic bilateral pelvic lymph node dissection including left external iliac, left internal iliac, left obturator lymph node dissection, right external iliac, right internal iliac, right obturator lymph node dissection, multiple peritoneal biopsies, partial omentectomy with appendectomy, and diagnostic laparoscopy with lysis of adhesions done by Dr. Brandon Baker on June 11, 2014. PATHOLOGY The debulking surgery was negative regarding the lymph nodes of the omentum and the staging procedure. STAGE Stage IC (pT1c pN0 cM0). TREATMENT The patient has been evaluated by Dr. Brandon Baker with recommendation of six cycles of carboplatin and Taxol after her surgery. The patient had started chemotherapy with carboplatin and Taxol on July 21, 2014. The patient completed six cycles of adjuvant chemotherapy with carboplatin and Taxol on November 02, 2014. HISTORY OF PRESENT ILLNESS Patient is here today to discuss the results of her abdominal and pelvic CT scan. Patient was complaining lately with constipation and worsening back pain and she went to the emergency room today and patient had a CT abdomen and pelvis done on June 14, 2018, which showed 1.3 cm isodense mass at the junction of the body and tail of pancreas. There was also irregular left sided retroperitoneal mass encasing the left renal artery with additional enlarged retroperitoneal masses suggesting adenopathy. There was also large heterogeneous mass at the left adrenal gland. There is extensive retrocrural adenopathy and large kelin cava mass abutting the uncinate process of the pancreas. There was also mild dilatation of the pancreatic duct. The kelin cava mass appears to be separate from the pancreas. She is complaining of lower back pain, tingling and numbness from her residual and neuropathy from her previous chemotherapy. She has worsening constipation and abdominal pain just above the umbilicus and going down to the pelvic area. PAST MEDICAL HISTORY 1. Hypothyroidism. 2. Ovarian cancer. 3. Asthma. 4. Rosacea. 5. Headaches. PAST SURGICAL HISTORY 1. Total abdominal hysterectomy with bilateral salpingo-oophorectomy May 20, 2014. 2. Debulking surgery for ovarian cancer done on June 11, 2014. 3. TMJ surgery. 4. Surgery for fractured left ankle. 5. [place] tooth extraction. 6. Laparoscopic cholecystectomy done on March 02, 2016. SOCIAL HISTORY The patient is single. She does not have children. 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 Denies any abuse of tobacco, alcohol, or drugs. FAMILY HISTORY Father had prostate cancer at the age of 72. There is no family history of ovarian or breast cancer in the family. CURRENT MEDICATIONS 1. Levothyroxine 100 mcg daily. 2. Doxycycline 100 mg daily. 3. Metronidazole 1% topical daily. 4. Fluticasone propionate 50 mcg daily. 5. Albuterol inhaler 90 mcg as needed. 6. Ibuprofen 600 mg as needed. 7. Zofran 4 mg p.r.n. for nausea and vomiting. 8. Percocet 5/325 mg p.r.n. for pain. ALLERGIES ZITHROMAX which causes flare up of rosacea and MUCINEX D which causes numbness of her face. REVIEW OF SYSTEMS CONSTITUTIONAL: No appetite or weight change. No fever, chills, or sweating. No recent infection. HEENT: Ears: No tinnitus or hearing problem. Nose: She has nasal discharge. No epistaxis. Throat: No sore throat or mouth ulcers. Eyes: No diplopia or visual changes. RESPIRATORY: She has dry cough and wheezing. No expectoration or hemoptysis. CARDIOVASCULAR: No chest pain, orthopnea, or paroxysmal nocturnal dyspnea (PND). No edema. No palpitations. GASTROINTESTINAL: She has worsening constipation and abdominal pain above the umbilicus, which radiated down to the pelvic area. GENITOURINARY: No hematuria or dysuria. MUSCULOSKELETAL: She has lower back pain. NEUROLOGICAL: She has tingling and numbness in her hands and feet from previous residual chemotherapy-induced neuropathy. HEMATOLOGIC/LYMPHATIC: No bleeding or easy bruising. No weakness or fatigue. No enlarged lymph nodes. SKIN: No skin rash or lumps. PSYCHIATRIC: No anxiety or depression. PHYSICAL EXAMINATION GENERAL: Looks stable. Well developed, well nourished, and in no acute distress. VITAL SIGNS: Blood pressure 156/97, pulse 87 per minute, respirations 16 per minute, temperature 96.4, pulse ox 96% on room air. HEENT: Head: Atraumatic. No sinus tenderness to palpation. Eyes: No icterus or conjunctivitis. Mouth and throat: No oral thrush or mucositis. NECK: There is a significant lymph node in the left root of the neck about 2 cm in diameter. LUNGS: Clear to auscultation and percussion bilaterally. HEART: Regular rate and rhythm. No gallops, murmurs, clicks, or rubs. ABDOMEN: Soft and lax. No tenderness. No hepatosplenomegaly. No masses. EXTREMITIES: No cyanosis, clubbing, or edema. LYMPHATICS: No peripheral lymphadenopathy. NEUROLOGICAL: Conscious, alert, and oriented times three. No focal motor or sensory deficits. PSYCHIATRIC: Mood and affect appear normal. SKIN: No skin rash, bruise, or purpuric eruption. DIAGNOSTIC DATA CBC showed white count 4.4, hemoglobin 14.4, hematocrit 44.4, platelets 191,000. Chem panel normal except serum lipase 440. ASSESSMENT 1. Widespread lymphatic adenopathy in the retroperitoneum and the left supraclavicular area,retrocrural area by CT abdomen and pelvis done on June 14, 2018. There was also 1.3 cm isodense mass at the junction of the body and tail of the pancreas. Given that the left supraclavicular lymph node is palpable, I am planning to get CT scan of the neck and I am planning also to check a PET CT scan and I will refer the patient to Dr. Barber for biopsy of the left neck lymph node or mass. Further evaluation and management will depend on the results of those tests. 2. Stage IC (pT1c pN0 cM0) ovarian adenocarcinoma involving both ovaries. Left ovarian cancer is present on the surface of the ovary while there is no surface involvement on the right ovarian cancer. Patient had total abdominal hysterectomy and bilateral salpingo-oophorectomy with incidental finding of ovarian cancer. She had her hysterectomy on May 20, 2014, and debulking surgery was done by Dr. Brandon Baker in [place] June 16, 2014. CA-125 prior to treatment was 25. Patient received six courses of adjuvant chemotherapy with carboplatin and Taxol between July 21, 2014, through November 06, 2014. Her last CA-125 a few weeks ago was normal at 15. Patient could have recurrence of her disease now or what we see on her CT scan and clinically could be a different cancer. The biopsy of the left supraclavicular lymph node will be decisive. 2. 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 3. Osteoarthritis. PLAN 1. PET CT scan. 2. Refer to Dr. Barber for biopsy of the left supraclavicular lymph node. 3. Recheck CA-125, CA-99, CEA and chromogranin A. 4. Patient to return after above for further evaluation and management. MTDD
[2018-07-01 13:13] VITALS: BP 129/89
[2018-07-05 09:56] VITALS: BP 123/85
--- NOTE | 2018-07-05 12:31 | [facility] ONCOLOGY NOTE ---
EVENT DATE: July 05, 2018 DIAGNOSES 1. Stage IC ovarian serous adenocarcinoma. 2. Hypothyroidism. 3. Rosacea. 4. Asthma. 5. 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 CHIEF COMPLAINT Patient is here today for followup of her recently diagnosed metastatic neuroendocrine tumor. ONCOLOGY HISTORY Eda Luis is a 52-year-old woman, premenopausal at presentation, pelvic pain, thought to be uterine myoma. DIAGNOSTIC EVALUATION Pelvic ultrasound April 2014 showed posterior uterine myoma with an otherwise fairly normal uterus. PROCEDURES 1. Diagnostic laparoscopy with total abdominal hysterectomy and bilateral salpingo-oophorectomy with diagnostic cystoscopy done on May 20, 2014, and the pathology came back positive for serous adenocarcinoma, high grade, involving the left ovary. The tumor appears to involve the ovarian surface. The left fallopian tube is cystically dilated and otherwise unremarkable. There was also surface adenocarcinoma high grade involving the right ovary and right fallopian tube. No definitive involvement of the ovarian surface is recognized. There was also benign leiomyoma. 2. Da Dwain robotic laparoscopic bilateral pelvic lymph node dissection including left external iliac, left internal iliac, left obturator lymph node dissection, right external iliac, right internal iliac, right obturator lymph node dissection, multiple peritoneal biopsies, partial omentectomy with appendectomy, and diagnostic laparoscopy with lysis of adhesions done by Dr. Brandon Baker on June 11, 2014. PATHOLOGY The debulking surgery was negative regarding the lymph nodes of the omentum and the staging procedure. STAGE Stage IC (pT1c pN0 cM0). TREATMENT The patient has been evaluated by Dr. Brandon Baker with recommendation of six cycles of carboplatin and Taxol after her surgery. The patient had started chemotherapy with carboplatin and Taxol on July 21, 2014. The patient completed six cycles of adjuvant chemotherapy with carboplatin and Taxol on November 02, 2014 Metastatic neuroendocrine tumor. Patient presented with widespread lymphatic adenopathy in the retroperitoneum and left supraclavicular area/retrocrural area by CT abdomen/pelvis done June 14, 2018. There was also 1.3 cm isodense mass at the junction of the body and tail of the pancreas. 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 Her TTF-1 was positive, which could be due to a lung primary. PET/CT scan done on June 25, 2018, did reveal hypermetabolic left supraclavicular, left axillary, intrathoracic and abdominal adenopathy. There was also hypermetabolic left adrenal mass consistent with metastatic disease. There was also hypermetabolic site within the pancreatic head/uncinate and body, corresponding with the subtle lesion seen in her CT scan. HISTORY OF PRESENT ILLNESS Patient is here today to discuss the results of her PET scan and the lymph node biopsy. She had her central port placed. She is complaining currently of some chills. She has nausea and vomiting occasionally and diarrhea also. She has residual neuropathy in her hands and feet from her previous chemotherapy from her ovarian cancer from Taxol therapy. Other than that, she is really doing fine. She is also claiming she has weight loss recently, which was not intentional. PAST MEDICAL HISTORY 1. Hypothyroidism. 2. Ovarian cancer. 3. Asthma. 4. Rosacea. 5. Headaches. PAST SURGICAL HISTORY 1. Total abdominal hysterectomy with bilateral salpingo-oophorectomy May 20, 2014. 2. Debulking surgery for ovarian cancer done on June 11, 2014. 3. TMJ surgery. 4. Surgery for fractured left ankle. 5. [place] tooth extraction. 6. Laparoscopic cholecystectomy done on March 02, 2016. SOCIAL HISTORY The patient is single. She does not have children. 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 Denies any abuse of tobacco, alcohol, or drugs. FAMILY HISTORY Father had prostate cancer at the age of 72. There is no family history of ovarian or breast cancer in the family. CURRENT MEDICATIONS 1. Levothyroxine 100 mcg daily. 2. Doxycycline 100 mg daily. 3. Metronidazole 1% topical daily. 4. Fluticasone propionate 50 mcg daily. 5. Albuterol inhaler 90 mcg as needed. 6. Ibuprofen 600 mg as needed. 7. Zofran 4 mg p.r.n. for nausea and vomiting. 8. Percocet 5/325 mg p.r.n. for pain. ALLERGIES ZITHROMAX which causes flare up of rosacea and MUCINEX D which causes numbness of her face. REVIEW OF SYSTEMS CONSTITUTIONAL: She has some chills. HEENT: Ears: No tinnitus or hearing problem. Nose: She has nasal discharge. No epistaxis. Throat: No sore throat or mouth ulcers. Eyes: No diplopia or visual changes. RESPIRATORY: She has dry cough and wheezing. No expectoration or hemoptysis. CARDIOVASCULAR: No chest pain, orthopnea, or paroxysmal nocturnal dyspnea (PND). No edema. No palpitations. GASTROINTESTINAL: She has nausea, vomiting and diarrhea occasionally. GENITOURINARY: No hematuria or dysuria. MUSCULOSKELETAL: She has lower back pain. NEUROLOGICAL: She has residual neuropathy in her hands and feet from previous chemotherapy. HEMATOLOGIC/LYMPHATIC: No bleeding or easy bruising. No weakness or fatigue. No enlarged lymph nodes. SKIN: No skin rash or lumps. PSYCHIATRIC: No anxiety or depression. PHYSICAL EXAMINATION GENERAL: Looks stable. Well developed, well nourished, and in no acute distress. VITAL SIGNS: Blood pressure 123/85, pulse 90 per minute, respirations 16 per minute, temperature 96.4, pulse ox 93% on room air. HEENT: Head: Atraumatic. No sinus tenderness to palpation. Eyes: No icterus or conjunctivitis. Mouth and throat: No oral thrush or mucositis. NECK: There is a significant lymph node in the left root of the neck about 2 cm in diameter. LUNGS: Clear to auscultation and percussion bilaterally. HEART: Regular rate and rhythm. No gallops, murmurs, clicks, or rubs. ABDOMEN: Soft and lax. No tenderness. No hepatosplenomegaly. No masses. EXTREMITIES: No cyanosis, clubbing, or edema. LYMPHATICS: No peripheral lymphadenopathy. NEUROLOGICAL: Conscious, alert, and oriented times three. No focal motor or sensory deficits. PSYCHIATRIC: Mood and affect appear normal. SKIN: No skin rash, bruise, or purpuric eruption. DIAGNOSTIC DATA PET/CT scan done on June 25, 2018 showed hypermetabolic left supraclavicular, left axillary, intrathoracic and intra-abdominal adenopathy. There was also hypermetabolic left adrenal mass consistent with metastatic disease. There was also hypermetabolic site within the pancreatic head/uncinate and body. Left supraclavicular lymphadenectomy done on June 27, 2018, came back positive for poorly differentiated neuroendocrine carcinoma (small cell carcinoma). ASSESSMENT 1. Metastatic neuroendocrine tumor, poorly differentiated, status post left supraclavicular lymphadenectomy done on June 27, 2018. The primary could be either the pancreas as the PET scan lights up in the pancreas or could be also primary lung as her TTF-1 was positive but at any level there will be no difference in the treatment. I am planning to treat her with carboplatin and etoposide so the patient will receive the chemotherapy over three days every three week cycle. I am planning to treat her also with Neulasta 6 mg subcutaneously after each cycle of chemotherapy. I am planning to see her again in three weeks prior to next cycle of chemotherapy. Side effects from treatment was explained to the patient and she is agreeable with the plan of management. 2. Stage IC (pT1c pN0 cM0) ovarian adenocarcinoma involving both ovaries. Left ovarian cancer is present on the surface of the ovary while there is no surface involvement of the right ovarian cancer. Patient had total abdominal hysterectomy and bilateral salpingo-oophorectomy with incidental finding of ovarian cancer. She had her hysterectomy on May 20, 2014, and her debulking surgery done by Dr. Brandon Baker in [place] June 16, 2014. CA-125 prior to her treatment was 25. Patient received six courses of adjuvant chemotherapy with carboplatin and Taxol between July 21, 2014, through November 06, 2014. Her last CA-125 was normal at 15. There is no evidence of recurrence and her current metastatic disease is due to neuroendocrine tumor rather than ovarian carcinoma. 3. 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 4. Osteoarthritis. PLAN 1. Carboplatin/etoposide, cycle #1. 2. CBC and chem panel to be checked weekly. 3. Neulasta 60 mg subcutaneously after each cycle of chemotherapy. 4. Patient to return in three weeks with CBC, chem panel, CEA and chromogranin A. 5. Patient to contact us for any new concerns or complaints. MTDD
[2018-07-12 14:26] LABS: PLATELET COUNT, AUTOMATED 185 K/uL (150-450)
[2018-07-12 14:27] VITALS: BP 123/84
--- NOTE | 2018-07-13 07:24 | ONCOLOGY CHEMO TEACHING ---
EVENT DATE: July 12, 2018 DIAGNOSES 1. Stage IC ovarian serous adenocarcinoma. 2. Hypothyroidism. 3. Rosacea. 4. Asthma. 5. 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 The patient is seen today for chemotherapy teaching. A total of 60 minutes was spent with Ms. Luis, 100% of which was [id number] counseling. PAST MEDICAL HISTORY 1. Hypothyroidism. 2. Ovarian cancer. 3. Asthma. 4. Rosacea. 5. Headaches. PAST SURGICAL HISTORY 1. Total abdominal hysterectomy with bilateral salpingo-oophorectomy May 20, 2014. 2. Debulking surgery for ovarian cancer done on June 11, 2014. 3. TMJ surgery. 4. Surgery for fractured left ankle. 5. [place] tooth extraction. 6. Laparoscopic cholecystectomy done on March 02, 2016. SOCIAL HISTORY The patient is single. She does not have children. 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 Denies any abuse of tobacco, alcohol, or drugs. FAMILY HISTORY Father had prostate cancer at the age of 72. There is no family history of ovarian or breast cancer in the family. CURRENT MEDICATIONS 1. Levothyroxine 100 mcg daily. 2. Doxycycline 100 mg daily. 3. Metronidazole 1% topical daily. 4. Fluticasone propionate 50 mcg daily. 5. Albuterol inhaler 90 mcg as needed. 6. Ibuprofen 600 mg as needed. 7. Zofran 4 mg p.r.n. for nausea and vomiting. 8. Percocet 5/325 mg p.r.n. for pain. 9. Lyrica 150 mg p.o. b.i.d. ALLERGIES ZITHROMAX which causes flare up of rosacea and MUCINEX D which causes numbness of her face. DISCUSSION 1. A total of 60 minutes was spent in counseling today, 100% of which was face to face. At today's chemotherapy teaching session we discussed her diagnosis as well as the planned chemotherapy regimen and toxicities associated with carboplatin/etoposide given consecutively on days 1 to 3 on a 21-day cycle, x the next six cycles. Neulasta 6 mg given with each cycle. Handouts of each drug were provided and reviewed in detail. 2. Side effects and toxicities of chemotherapy agents included, but were not limited to: A. Bone marrow suppression, specifically neutropenia. She is instructed to contact our offices with any signs of infection. CBC will be monitored routinely. We discussed common sense approaches including routine hand washing and avoidance of crowds/sick people if neutropenic. B. GI side effects. Discussed the possibility of nausea, vomiting, diarrhea and constipation. She will receive IV antiemetics and will be prescribed antiemetics for home use. If she were to have diarrhea, recommended Imodium. If she were to have constipation, recommended Senna-S or Miralax routinely. Further interventions will be made based on side effects. C. side effects. Discussed the importance of adequate hydration (minimum 8 cups of fluid per day) and emptying the bladder on a regular basis. IV hydration can be scheduled as needed. D. Mouth sores. Recommended salt water or baking soda gargles as needed. E. Skin toxicity. Discussed that chemotherapy was very drying to the skin and mucous membranes. Recommended routine moisturizing as well as sun protection. F. Neurotoxicity. Discussed symptoms of peripheral neuropathy. She will be monitored of these symptoms and will notify us if progressive. G. Alopecia. Prescription is written for cranial prosthesis. A list of local wig shops is given. H. Fatigue. Discussed that this is one of the most common complaints of patients undergoing chemotherapy. I have encouraged her to remain as active as possible, taking frequent rests as needed. I. Infusion reaction. Reviewed IV premedications. She will be monitored closely during infusions. J. Reproductive Health: Discussed importance of preventing while on chemotherapy. Discussed control options and fertility preservation. Also, to abstain from sexual intercourse for 2-3 days after chemotherapy administration. 3. I have instructed the patient to call our office if she is prescribed any new medications. It is recommended that multiple supplements or herbal medications may not be taken as these may interfere with the action of the chemotherapy. 4. Discussed dietary issues associated with chemotherapy including anorexia and changes in taste. A handout of nutrition information is given. 5. Office contact information ([phone]) is given. I have encouraged the patient to call with any issues regarding treatment. 6. A tour of the infusion room is given. She is given a packet of information including all of the above. 7. Patient had a left chest wall port-a-cath placed two weeks ago. This is evaluated and site looks good. She does have in incision to the left from recent biopsy site, which also appears to be healing well. 8. Patient will return to the clinic on Sunday to initiate Cycle #1. Patient is aware that she need a one-week followup after initiating her first cycle. GARTH
[2018-07-15] MEDS: NS(*) 0.9% 250 ML BAG 250 ML IVPB PRN (12:30)
[2018-07-15] MEDS: LIDOCAINE/SOD BICARB 8.4% SYR ID PRN (12:30)
[2018-07-15] MEDS: PALONOSETRON 0.25 MG/5 ML VIAL IVP PRN (12:55)
[2018-07-15] MEDS: DEXAMETHASONE SOD PHOS 10MG/ML IVP PRN (12:55)
[2018-07-15] MEDS: FOSAPREPITANT DIM 150 MG/5 ML 150 MG in NS(*) 0.9% 250 ML BAG 245 ML IVPB PRN (13:30)
[2018-07-15 15:28] VITALS: BP 128/73
[2018-07-15 15:30] VITALS: BP 125/86
[2018-07-15] MEDS: HEPARIN FLSH (PORT) 500 UN/5ML IVP PRN (16:30)
[2018-07-15 16:56] VITALS: BP 134/86
[2018-07-16 13:08] VITALS: BP 118/75
[2018-07-16] MEDS: LIDOCAINE/SOD BICARB 8.4% SYR ID PRN (13:13)
[2018-07-16] MEDS: NS(*) 0.9% 250 ML BAG 250 ML IVPB PRN (13:14)
[2018-07-16] MEDS: DEXAMETHASONE SOD PHOS 10MG/ML IVP PRN (13:18)
[2018-07-16 15:12] VITALS: BP 118/69
[2018-07-16] MEDS: HEPARIN FLSH (PORT) 500 UN/5ML IVP PRN (15:16)
[2018-07-17] MEDS: LIDOCAINE/SOD BICARB 8.4% SYR ID PRN (13:15)
[2018-07-17] MEDS: NS(*) 0.9% 250 ML BAG 250 ML IVPB PRN (13:15)
[2018-07-17] MEDS: DEXAMETHASONE SOD PHOS 10MG/ML IVP PRN (13:16)
[2018-07-17 13:39] VITALS: BP 124/76
[2018-07-17] MEDS: HEPARIN FLSH (PORT) 500 UN/5ML IVP PRN (13:56)
[2018-07-17 15:02] VITALS: BP 118/70
[2018-07-24 12:05] VITALS: BP 124/83
[2018-07-24 12:18] LABS: PLATELET COUNT, AUTOMATED 79 K/uL (150-450)
--- NOTE | 2018-07-25 10:01 | NUR ---
NATI submitted requested [facility] paperwork to Mariluz Carrillo and
[2018-07-26 13:56] VITALS: BP 102/70
[2018-07-26 14:12] LABS: PLATELET COUNT, AUTOMATED 46 K/uL (150-450)
[2018-07-26] MEDS: LIDOCAINE/SOD BICARB 8.4% SYR ID PRN (14:46)
[2018-07-26] MEDS: HEPARIN FLSH (PORT) 500 UN/5ML IVP PRN (14:46)
[2018-07-26 15:41] VITALS: BP 109/74
[2018-07-26 16:00] VITALS: BP 109/74
--- NOTE | 2018-07-26 22:14 | ONCOLOGY FOLLOW UP NOTE ---
EVENT DATE: July 26, 2018 DIAGNOSES 1. Stage IC ovarian serous adenocarcinoma. 2. Hypothyroidism. 3. Rosacea. 4. Asthma. 5. 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 CHIEF COMPLAINT Patient is here today for acute add-on visit after calling our office today to report some dysuria, pain when urinating, as well as increased back pain and [id number] fatigue. ONCOLOGY HISTORY Eda Luis is a 52-year-old woman, premenopausal at presentation, pelvic pain, thought to be uterine myoma. Patient was treated with adjuvant carboplatin and Taxol times six cycles. She completed all six cycles of adjuvant chemotherapy on 11/02/2014. Metastatic neuroendocrine tumor: Patient presented with widespread lymphatic adenopathy in the retroperitoneum and left supraclavicular area/retrocrural area by CT abdomen/pelvis done on 06/14/18. There was also 1.3 cm isodense mass at the junction of the body and tail of the pancreas. 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 Her TTF-1 was positive, which could be due to a lung primary. PET CT on 06/25/18 did reveal hypermetabolic left supraclavicular, left axillary, intrathoracic, and abdominal adenopathy. There was also hypermetabolic left adrenal mass consistent with metastatic disease. There was also hypermetabolic site within the pancreatic head/uncinate and body, corresponding with the subtle lesion seen on her CT scan. PROCEDURES/DIAGNOSTIC EVALUATION 1. Pelvic ultrasound April 2014 showed posterior uterine myoma with an otherwise fairly normal uterus. 2. Diagnostic laparoscopy with total abdominal hysterectomy and bilateral salpingo-oophorectomy with diagnostic cystoscopy done on May 20, 2014, and the pathology came back positive for serous adenocarcinoma, high grade, involving the left ovary. The tumor appears to involve the ovarian surface. The left fallopian tube is cystically dilated and otherwise unremarkable. There was also surface adenocarcinoma, high grade, involving the right ovary and right fallopian tube. No definitive involvement of the ovarian surface is recognized. There was also benign leiomyoma. 3. Da Dwain robotic laparoscopic bilateral pelvic lymph node dissection including left external iliac, left internal iliac, left obturator lymph node dissection, right external iliac, right internal iliac, right obturator lymph node dissection, multiple peritoneal biopsies, partial omentectomy with appendectomy, and diagnostic laparoscopy with lysis of adhesions done by Dr. Brandon Baker on June 11, 2014. PATHOLOGY The debulking surgery was negative regarding the lymph nodes of the omentum and the staging procedure. HISTORY OF PRESENT ILLNESS Patient is here today for add-on visit after reporting some worsening fatigue and some dysuria after calling our office today. She received Cycle #1 of carboplatin/911 TELECOMMUNICATOR-16 last week, 07/15/18 through 07/17/18. She received Neulasta injection 07/18/18. She is now approximately eight days out from last dose of chemotherapy. She has had some back pain, but tells me she has been having back pain prior to chemotherapy, though this did increase in intensity. She is using Tylenol one to two times per day at least at bedtime, which does help significantly with her pain. She reports that she has had only very mild nausea on occasion, but has used her Zofran ODT, which helps quite well. She is eating fairly well and is trying to drink as much fluid as possible. Lastly, she reports that she had some mild spotting of blood on the tissue paper after urinating today. She no longer has menses; is status post complete hysterectomy and bilateral salpingo-oophorectomy. Patient tells me that when she voids, she does feel pain and can feel a palpable area of pain externally on the labia. She has not noticed any discharge or pus or other bleeding other than occasional spotting when wiping with tissue paper. She denies any fevers during this time frame. PAST MEDICAL HISTORY 1. Hypothyroidism. 2. Ovarian cancer. 3. Asthma. 4. Rosacea. 5. Headaches. PAST SURGICAL HISTORY 1. Total abdominal hysterectomy with bilateral salpingo-oophorectomy May 20, 2014. 2. Debulking surgery for ovarian cancer done on June 11, 2014. 3. TMJ surgery. 4. Surgery for fractured left ankle. 5. [place] tooth extraction. 6. Laparoscopic cholecystectomy done on March 02, 2016. SOCIAL HISTORY The patient is single. She does not have children. 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 Denies any abuse of tobacco, alcohol, or drugs. FAMILY HISTORY Father had prostate cancer at the age of 72. There is no family history of ovarian or breast cancer in the family. CURRENT MEDICATIONS 1. Levothyroxine 100 mcg daily. 2. Doxycycline 100 mg daily. 3. Metronidazole 1% topical daily. 4. Fluticasone propionate 50 mcg daily. 5. Albuterol inhaler 90 mcg as needed. 6. Ibuprofen 600 mg as needed. 7. Zofran 4 mg p.r.n. for nausea and vomiting. 8. Percocet 5/325 mg p.r.n. for pain. ALLERGIES ZITHROMAX which causes flare up of rosacea and MUCINEX D which causes numbness of her face. REVIEW OF SYSTEMS CONSTITUTIONAL: Patient denies any fevers, but has had some chills over the last few days. She has been reporting chills, though, for several weeks. She does have increased fatigue. HEENT: No vision changes. No tinnitus. No mouth sores. No dysphagia or odynophagia. RESPIRATORY: She has an occasional dry cough with wheezes. No shortness of breath. No hemoptysis or pleuritic chest pain. CARDIOVASCULAR: She denies any chest pain, syncope, or presyncope. GASTROINTESTINAL: No abdominal pain. She has had some nausea, though reports this is mild, and this responded very well to Zofran ODT. No actual vomiting. She does have occasional diarrhea, though her bowels are working normally currently. No bright red blood per rectum or melena. Appetite has been fairly stable, though it did dip down after chemotherapy. She is trying to push oral fluids as much as she can, though it does become difficult at times, especially today as she is severely fatigued. GENITOURINARY: Patient is reporting some dysuria over the last 24 hours. She reports a palpable area externally which she believes is causing her pain. She also has some accompanying lower back pain, which she says is more noticeable in her left lower back. Patient has noticed a couple of spots of bright red blood after urinating and wiping with tissue. MUSCULOSKELETAL: She has a history of lower back pain. No flank pain, though she does have increased pain to the left lower lumbar spine. 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 No headache. No seizure activity. HEMATOLOGIC/LYMPHATIC: No bleeding or easy bruising. No weakness or fatigue. No enlarged lymph nodes. ENDOCRINE: Patient has had some chills. She has not noted any fevers at home. She does have [id number]-mr-[id number] fatigue today. SKIN: No rash. Generalized pruritus. No suspicious lumps or bumps. PSYCHIATRIC: Patient denies any severe anxiety, severe depression, suicidal or homicidal ideation. The remainder of a 12-point review of systems is performed today and is otherwise negative. PHYSICAL EXAMINATION VITAL SIGNS: T 100.6, P 106, R 18, BP 102/70, oxygen saturation 95% room air. GENERAL: In general, this is a pleasant 52-year-old woman who appears to be moderately fatigued, somewhat volume contracted, but otherwise is in no acute distress. HEAD: Atraumatic, normocephalic. EYES: Sclerae anicteric. ENT, MOUTH: Somewhat dry mucous membranes. No mucositis. NECK: There is a significant lymph node in the left root of the neck about 2 cm in diameter. Otherwise, normal range of motion. LUNGS: Clear to auscultation bilaterally. No focal findings. HEART: Mild tachycardic with regular rhythm. No ectopy. ABDOMEN: Soft, nontender, nondistended. No organomegaly. Bowel sounds positive x4. EXTREMITIES: No edema, clubbing, or cyanosis. NEUROLOGIC: Patient is awake, alert, oriented x3. PSYCHIATRIC: Mood and affect are appropriate. Patient does appear quite fatigued. SKIN: No rash, petechiae, or purpura. GYNECOLOGIC: Examination of the external pelvic/vaginal region did reveal palpable, mildly edematous, erythematous nodule at the left external labia, approximately at the 3 to 4 o'clock position, approximately 2 cm in length. This is tenderness to palpation. There is no open area, and there is no visible drainage or pus. Consistent with a cyst, small abscess versus Bartholin cyst. LABORATORY CBC today: WBC 2.0, hemoglobin 12.6, hematocrit 38.7%, platelets 46,000. ANC is 0.420. CMP today: Largely unremarkable with the exception of mildly low sodium level at 136. UA today: Small amount of blood. Otherwise negative nitrites, negative leukocytes. IMPRESSION AND PLAN This is a pleasant 52-year-old woman with: 1. Metastatic neuroendocrine tumor, poorly differentiated, status post left supraclavicular lymphadenectomy done on June 27, 2018. The primary could be either the pancreas as the PET scan lights up in the pancreas, or could be also primary lung as her TTF-1 was positive, but at any level, there will be no difference in the treatment. Patient just completed Cycle #1 with carboplatin and etoposide one week ago, with days 1, 2, and 3 given from 07/15/18 through 07/17/18. She received Neulasta on 07/18/18. She is eight days post her last dose of chemotherapy. 2. CBC today revealed leukopenia with total white blood cell count of 2.0 and grade 3 neutropenia with ANC of 0.420. Patient is appropriately neutropenic given where she is at in her cycle and given the fact she is on carboplatin/911 TELECOMMUNICATOR- 16. She did receive colony-stimulating factor with Neulasta, and this likely is just not showing up yet in blood work. 3. Thrombocytopenia, grade 2: Platelets today 46,000. Other than a couple of spots of blood when wiping with tissue paper, she denies bleeding elsewhere. We reviewed bleeding precautions. She is aware of when to call our office or present to the Emergency Room. 4. Due to her neutropenia and thrombocytopenia, we will recheck CBC on Sunday. 5. External vaginal nodule, potential Bartholin cyst versus abscess: Exam done today, and area is tender, likely the source of her pain with urination. For today, we will administer 1 g of Rocephin intravenously, along with 1 L normal saline intravenously for her volume contraction as evidenced by dry mucous membranes, mild tachycardia with heart rate of 106, and temperature of 100.6, with blood pressure lower than usual at 102/70. She will receive 1 L normal saline intravenously. 6. I have e-prescribed oral antibiotics for patient, clindamycin t.i.d. x10 days, #30, no refills. Explained to patient how to take these. 7. Pain/fever reduction: I explained to patient that she may continue to use Tylenol p.r.n. as this has been helping her back pain. She is to continue to use that as well if she has any fevers, though she is to alert us if she has any recurrence or persistent temperature above 100.5 degrees Fahrenheit or greater. She does have tramadol at home for vtubzbfn-oy-ulrflj pain. 8. I have asked patient to return to clinic on Sunday for a repeat CBC. 9. Patient will keep her followup appointment for next week on Sunday as scheduled. 10. Discussed comfort care. She may apply warm compresses to the left-sided nodule as needed. GARTH
[2018-07-29 13:54] VITALS: BP 115/75
[2018-07-29 13:56] LABS: PLATELET COUNT, AUTOMATED 61 K/uL (150-450)
[2018-07-29] MEDS: LIDOCAINE/SOD BICARB 8.4% SYR ID PRN (13:57)
[2018-07-29] MEDS: ALTEPLASE RECOMB 2 MG VIAL IVP PRN (13:58)
[2018-07-29] MEDS: HEPARIN FLSH (PORT) 500 UN/5ML IVP PRN (16:01)
[2018-08-02 15:24] VITALS: BP 108/75
[2018-08-02 15:40] VITALS: BP 108/77
[2018-08-02 15:48] LABS: PLATELET COUNT, AUTOMATED 236 K/uL (150-450)
--- NOTE | 2018-08-03 08:55 | [facility] ONCOLOGY NOTE ---
EVENT DATE: August 02, 2018 DIAGNOSES 1. Stage IC ovarian serous adenocarcinoma. 2. Hypothyroidism. 3. Rosacea. 4. Asthma. 5. 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 CHIEF COMPLAINT Patient is here today for followup of her metastatic neuroendocrine tumor. ONCOLOGY HISTORY Eda Luis is a 52-year-old woman, premenopausal at presentation, pelvic pain, thought to be uterine myoma. DIAGNOSTIC EVALUATION Pelvic ultrasound April 2014 showed posterior uterine myoma with an otherwise fairly normal uterus. PROCEDURES 1. Diagnostic laparoscopy with total abdominal hysterectomy and bilateral salpingo-oophorectomy with diagnostic cystoscopy done on May 20, 2014, and the pathology came back positive for serous adenocarcinoma, high grade, involving the left ovary. The tumor appears to involve the ovarian surface. The left fallopian tube is cystically dilated and otherwise unremarkable. There was also surface adenocarcinoma high grade involving the right ovary and right fallopian tube. No definitive involvement of the ovarian surface is recognized. There was also benign leiomyoma. 2. Da Dwain robotic laparoscopic bilateral pelvic lymph node dissection including left external iliac, left internal iliac, left obturator lymph node dissection, right external iliac, right internal iliac, right obturator lymph node dissection, multiple peritoneal biopsies, partial omentectomy with appendectomy, and diagnostic laparoscopy with lysis of adhesions done by Dr. Brandon Baker on June 11, 2014. PATHOLOGY The debulking surgery was negative regarding the lymph nodes of the omentum and the staging procedure. STAGE Stage IC (pT1c pN0 cM0). TREATMENT The patient has been evaluated by Dr. Brandon Baker with recommendation of six cycles of carboplatin and Taxol after her surgery. The patient had started chemotherapy with carboplatin and Taxol on July 21, 2014. The patient completed six cycles of adjuvant chemotherapy with carboplatin and Taxol on November 02, 2014 Metastatic neuroendocrine tumor. Patient presented with widespread lymphatic adenopathy in the retroperitoneum and left supraclavicular area/retrocrural area by CT abdomen/pelvis done June 14, 2018. There was also 1.3 cm isodense mass at the junction of the body and tail of the pancreas. 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 Her TTF-1 was positive, which could be due to a lung primary. PET/CT scan done on June 25, 2018, did reveal hypermetabolic left supraclavicular, left axillary, intrathoracic and abdominal adenopathy. There was also hypermetabolic left adrenal mass consistent with metastatic disease. There was also hypermetabolic site within the pancreatic head/uncinate and body, corresponding with the subtle lesion seen in her CT scan. HISTORY OF PRESENT ILLNESS Patient is here today for followup of her metastatic neuroendocrine tumor on chemotherapy with carboplatin and DIVING BOARD ASSEMBLER-16. Patient is doing fine currently. She has some chills. She has also nasal discharge. She has constipation. She has neuropathy in her feet from her previous chemotherapy. She is weak, tired and fatigued but generally speaking she tolerated the first cycle very well. PAST MEDICAL HISTORY 1. Hypothyroidism. 2. Ovarian cancer. 3. Asthma. 4. Rosacea. 5. Headaches. PAST SURGICAL HISTORY 1. Total abdominal hysterectomy with bilateral salpingo-oophorectomy May 20, 2014. 2. Debulking surgery for ovarian cancer done on June 11, 2014. 3. TMJ surgery. 4. Surgery for fractured left ankle. 5. [place] tooth extraction. 6. Laparoscopic cholecystectomy done on March 02, 2016. SOCIAL HISTORY The patient is single. She does not have children. 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 Denies any abuse of tobacco, alcohol, or drugs. FAMILY HISTORY Father had prostate cancer at the age of 72. There is no family history of ovarian or breast cancer in the family. CURRENT MEDICATIONS 1. Levothyroxine 100 mcg daily. 2. Doxycycline 100 mg daily. 3. Metronidazole 1% topical daily. 4. Fluticasone propionate 50 mcg daily. 5. Albuterol inhaler 90 mcg as needed. 6. Ibuprofen 600 mg as needed. 7. Zofran 4 mg p.r.n. for nausea and vomiting. 8. Percocet 5/325 mg p.r.n. for pain. ALLERGIES ZITHROMAX which causes flare up of rosacea and MUCINEX D which causes numbness of her face. REVIEW OF SYSTEMS CONSTITUTIONAL: Patient has chills. HEENT: Ears: No tinnitus or hearing problem. Nose: She has nasal discharge. Throat: No sore throat or mouth ulcers. Eyes: No diplopia or visual changes. RESPIRATORY: She has dry cough and wheezing. No expectoration or hemoptysis. CARDIOVASCULAR: No chest pain, orthopnea, or paroxysmal nocturnal dyspnea (PND). No edema. No palpitations. GASTROINTESTINAL: She has constipation. GENITOURINARY: No hematuria or dysuria. MUSCULOSKELETAL: She has lower back pain. NEUROLOGICAL: She has neuropathy in her feet. HEMATOLOGIC/LYMPHATIC: She is weak, tired and fatigued. SKIN: No skin rash or lumps. PSYCHIATRIC: No anxiety or depression. PHYSICAL EXAMINATION GENERAL: Looks stable. Well developed, well nourished, and in no acute distress. VITAL SIGNS: Blood pressure 108/77, pulse 67 per minute, respirations 16 per minute, temperature 98.6, pulse ox 95% on room air. HEENT: Head: Atraumatic. No sinus tenderness to palpation. Eyes: No icterus or conjunctivitis. Mouth and throat: No oral thrush or mucositis. NECK: There is a significant lymph node in the left root of the neck about 2 cm in diameter. LUNGS: Clear to auscultation and percussion bilaterally. HEART: Regular rate and rhythm. No gallops, murmurs, clicks, or rubs. ABDOMEN: Soft and lax. No tenderness. No hepatosplenomegaly. No masses. EXTREMITIES: No cyanosis, clubbing, or edema. LYMPHATICS: No peripheral lymphadenopathy. NEUROLOGICAL: Conscious, alert, and oriented times three. No focal motor or sensory deficits. PSYCHIATRIC: Mood and affect appear normal. SKIN: No skin rash, bruise, or purpuric eruption. DIAGNOSTIC DATA CBC is pending but chem panel is normal except sodium 136, total bilirubin less than 0.1. CEA and chromogranin A are pending. ASSESSMENT 1. Metastatic neuroendocrine tumor, poorly differentiated, status post left supraclavicular lymphadenectomy done June 27, 2018. The primary could be either the pancreas as the PET scan lights up in the pancreas or could be also primary lung as her TTF-1 was positive but at any level there will be no difference in the treatment. Patient started treatment with carboplatin and etoposide on July 17, 2018. She tolerated the first cycle very well without much complication. I am planning to proceed with her second cycle if CBC is okay on August 06, 2018. Patient will also receive Neulasta 6 mg subcutaneously after each cycle of chemotherapy given her previous history of chemotherapy in the past for her ovarian carcinoma. I am planning to see her again in three weeks with CBC, chem panel, CEA and chromogranin A. 2. Stage IC (pT1c pN0 cM0) ovarian adenocarcinoma involving both ovaries. Left ovarian cancer is present on the surface of the ovary while there is no surface involvement of the right ovarian cancer. Patient had total abdominal hysterectomy and bilateral salpingo-oophorectomy with incidental finding of ovarian cancer. She had her hysterectomy on May 20, 2014, and her debulking surgery done by Dr. Brandon Baker in [place] June 16, 2014. CA-125 prior to her treatment was 25. Patient received six courses of adjuvant chemotherapy with carboplatin and Taxol between July 21, 2014, through November 06, 2014. Her last CA-125 was normal at 15. There is no evidence of recurrent disease and the patient in complete remission currently. We will continue to monitor. 3. 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 4. Osteoarthritis. PLAN 1. Carboplatin/etoposide, cycle #2. 2. CBC and chem panel to be checked weekly. 3. Neulasta 6 mg subcutaneously after each cycle of chemotherapy. 4. Patient to return in three weeks with CBC, chem panel, CEA and chromogranin A. 5. Patient to contact us for any new concerns or complaints. MTDD
[2018-08-06 12:17] VITALS: BP 111/76
[2018-08-06] MEDS: LIDOCAINE/SOD BICARB 8.4% SYR ID PRN (12:23)
[2018-08-06] MEDS: NS(*) 0.9% 250 ML BAG 250 ML IVPB PRN (12:23)
[2018-08-06] MEDS: DEXAMETHASONE SOD PHOS 10MG/ML IVP PRN (13:42)
[2018-08-06] MEDS: PALONOSETRON 0.25 MG/5 ML VIAL IVP PRN (13:42)
[2018-08-06] MEDS: ALTEPLASE RECOMB 2 MG VIAL IVP PRN (13:42)
[2018-08-06] MEDS: FOSAPREPITANT DIM 150 MG/5 ML 150 MG in NS(*) 0.9% 250 ML BAG 245 ML IVPB PRN (14:07)
[2018-08-06 16:55] VITALS: BP 105/68
[2018-08-06] MEDS: HEPARIN FLSH (PORT) 500 UN/5ML IVP PRN (16:56)
[2018-08-07 13:15] VITALS: BP 114/72
[2018-08-07] MEDS: LIDOCAINE/SOD BICARB 8.4% SYR ID PRN (13:22)
[2018-08-07] MEDS: HEPARIN FLSH (PORT) 500 UN/5ML IVP PRN (13:23)
[2018-08-07] MEDS: DEXAMETHASONE SOD PHOS 10MG/ML IVP PRN (13:23)
[2018-08-07] MEDS: NS(*) 0.9% 250 ML BAG 250 ML IVPB PRN (13:23)
[2018-08-07 15:04] VITALS: BP 97/66
[2018-08-08 13:13] VITALS: BP 108/66
[2018-08-08] MEDS: LIDOCAINE/SOD BICARB 8.4% SYR ID PRN (13:22)
[2018-08-08] MEDS: NS(*) 0.9% 250 ML BAG 250 ML IVPB PRN (13:22)
[2018-08-08] MEDS: HEPARIN FLSH (PORT) 500 UN/5ML IVP PRN (13:23)
[2018-08-08] MEDS: DEXAMETHASONE SOD PHOS 10MG/ML IVP PRN (13:23)
[2018-08-08 15:10] VITALS: BP 101/58
[~2018-08-15] VITALS: Ht 173.5 cm; Wt 96.1 kg
[~2018-08-15 11:59] MED LIST changes: +CARBOPLATIN IVPB ONE; +DEXTROSE 5%(*) 100 ML BAG 100 ML IVPB PRN; +ETOPOSIDE IV ONE; +GADOBENATE 529MG/1ML 15ML VIAL IVP ONE; +NS 0.9% IV ONE; +NS 0.9% IVPB ONE; +NS(*) 0.9% 100 ML BAG 100 ML IVPB PRN; +NS(*) 0.9% 1000 ML BAG 1,000 ML IV PRN; +NS(*) 0.9% 50 ML BAG 50 ML ONE; +PEGFILGRASTIM 6 MG/0.6 ML SYR SUBQ ONE; +WATER FOR INJ,STERILE 20 ML IVP PRN; +cefTRIAXone(*) 1 GM VIAL 1 GM in NS(*) 0.9% 100 ML MINI-BAG 100 ML IVPB ONE
[2018-08-15 12:13] VITALS: BP 116/65
[2018-08-15 12:17] LABS: PLATELET COUNT, AUTOMATED 203 K/uL (150-450)
== END 2018-08-18 ==
LOC: SPU 11:59
PROVIDERS: ATTEND Internal Medicine Hematology
DX: Z51.11 Encounter for antineoplastic chemotherapy (principal); C56.2 Malignant neoplasm of left ovary; C56.1 Malignant neoplasm of right ovary; E03.9 Hypothyroidism, unspecified; L71.9 Rosacea, unspecified; J45.909 Unspecified asthma, uncomplicated; Z90.710 Acquired absence of both cervix and uterus; Z92.21 Personal history of antineoplastic chemotherapy; G62.0 Drug-induced polyneuropathy; T45.1X5A Adverse effect of antineoplastic and immunosuppressive drugs, initial encounter; R59.0 Localized enlarged lymph nodes; K86.89 Other specified diseases of pancreas
CPT/HCPCS: 36415; 36591; 36593; 81001; 82378; 85025; 85027; 86301; 86304; 86316; 96361; 96365; 96367; 96374; 96375; 96411; 96413; 96417; 99212; J0696; J1100; J1453; J1642; J2469; J2997; J7030; J7040; J7050; J9045; J9181; 82040; 82247; 82310; 82374; 82435; 82565; 82947; 84075; 84132; 84155; 84295; 84450; 84460; 84520; A9577

== ENCOUNTER → 2018-08-15 | Outpatient (CLI) | payer OTHER ==
[2014-05-21 16:33] VITALS: BMI 35.4
[~2018-08-15] MED LIST changes: -PEGFILGRASTIM 6 MG/0.6 ML SYR SUBQ ONE
== END ==
LOC: SPU 10:34
PROVIDERS: ATTEND Obstetrics & Gynecology
DX: E03.9 Hypothyroidism, unspecified (principal)
CPT/HCPCS: 84443

== ENCOUNTER → 2018-09-04 | Outpatient (CLI) | payer OTHER ==
[2014-05-21 16:33] VITALS: BMI 35.4
[~2018-09-04] MED LIST changes: -CARBOPLATIN IVPB ONE; -DEXTROSE 5%(*) 100 ML BAG 100 ML IVPB PRN; -ETOPOSIDE IV ONE; -GADOBENATE 529MG/1ML 15ML VIAL IVP ONE; -NS 0.9% IV ONE; -NS 0.9% IVPB ONE; -NS(*) 0.9% 100 ML BAG 100 ML IVPB PRN; -NS(*) 0.9% 1000 ML BAG 1,000 ML IV PRN; -NS(*) 0.9% 50 ML BAG 50 ML ONE; -WATER FOR INJ,STERILE 20 ML IVP PRN; -cefTRIAXone(*) 1 GM VIAL 1 GM in NS(*) 0.9% 100 ML MINI-BAG 100 ML IVPB ONE
[2018-09-05 13:06] VITALS: BP 102/72
== END ==
LOC: SPU 16:54
PROVIDERS: ATTEND Internal Medicine Hematology
DX: C7A.8 Other malignant neuroendocrine tumors (principal)